=== PATIENT | female | born 1975 | race Caucasian/White ===

== ENCOUNTER 2016-11-02 05:46 | Observation (INO) | payer OTHER ==
--- NOTE | 2016-10-23 17:10 | GHP ---
[f rep st] PREOP HISTORY AND PHYSICAL DATE OF ADMISSION: 11/02/2016 ADMITTING DIAGNOSIS: Symptomatic uterine prolapse. HISTORY OF PRESENT ILLNESS: The patient is a 41-year-old, 2, para 2-0-0 -2, with a last menstrual period 09/18/2016 who presents for annual exam on October 14 with complaints of prolapse of her uterus for 3 weeks duration. She noticed after skiing, she had discomfort as well as pelvic pressure and pain , especially at the end of the day and after being on her feet all day. Normal urinary and bowel function. Occasional urgency, but does not have any leaking. The patient does have a personal history of breast cancer. It is HER-2 positive and BRCA 1,2 negative. She does desire to keep her ovaries at this time, but is interested in having a hysterectomy with removal of uterus to treat her symptomatic prolapse. PAST OB HISTORY: In 2004, she had a vaginal delivery. In 2006, had another vaginal delivery. 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 Cycles are usually monthly and she bleeds for 3 days. Flow is light. Patient denies any exposure to sexually transmitted diseases and she denies ever having an abnormal Pap smear. Most recent Pap smear up to date is normal and that was done October 19, 2016. PAST MEDICAL HISTORY: Breast cancer. PAST SURGICAL HISTORY: Bilateral mastectomy in 2010. FAMILY HISTORY: On father's side, a great-great grandmother with ovarian cancer , diagnosed at age 70. A maternal grandfather with pancreatic cancer. A maternal aunt with throat cancer. MEDICATIONS: Tamoxifen 20 mg a day x 5 years now, she plans to continue for 10 years. Vitamin D. ALLERGIES: No known drug allergies. SOCIAL HISTORY: The patient is , for 15 years. 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 Denies any alcohol or illicit drug use. She has alcohol 2 or 3 times each month and drinks a cup of caffeine daily. She lives with her and 2 children, 9 and 11-year-old boys. LABORATORY DATA: H and H is pending. STUDIES: A pelvic ultrasound was done and revealed a uterus that is retroverted , measuring 8 x 3 x 6 cm with two fibroids. One intramural and the other appears to be pedunculated, measuring about 3 x 3 cm. The lining looked normal. Bilateral ovaries normal. Small amount of free fluid. PHYSICAL EXAMINATION: VITAL SIGNS: On admission, vital signs are stable. The patient is afebrile. GENERAL APPEARANCE: Well-nourished, well-developed 41- year-old female, alert oriented x3. No apparent distress. HEART: Regular rate and rhythm. LUNGS: Clear to auscultation. ABDOMEN: Soft, nontender, nondistended. Active bowel sounds. PELVIC/BIMANUAL: She has a retroverted uterus, normal size. With Valsalva, the uterus does prolapse down to the introitus, Grade 2-3 prolapse. She does have good bladder and rectal support on exam. EXTREMITIES: Normal to inspection without tenderness or swelling. ASSESSMENT AND PLAN: This patient is a 41-year-old, 2, para 2-0-0-2 who presents with symptomatic uterine prolapse. PLAN: 1. Patient does desire definitive treatment at this time and desires to keep her ovaries. Discussed proceeding with a laparoscopic hysterectomy with removal of both tubes. 2. Surgical consents were obtained. Risks, benefits, alternatives were reviewed with the patient including but not limited to, bleeding, infection, damage to surrounding organs. The patient is aware of risks, wants to proceed with surgery. 3. Also discussed the procedure, length of operation, limitations, n.p.o. status. 4. Will order Ancef for antibiotics battery container finishing hand to OR. 5. SCDs for DVT prophylaxis. /[id number]/MODL MTDD
[2016-11-02] MEDS ORDERED: ceFAZolin 2 GM/DEXTROSE 100 ML IV ONE (06:00)
[2016-11-02] MEDS ORDERED: LR 1,000 ML IV ONE (06:13)
[2016-11-02] MEDS ORDERED: LIDOCAINE 1% 5 ML SDV ID PRN (06:13)
[2016-11-02] MEDS ORDERED: LIDOCAINE 1% 5 ML SDV ONE (06:14)
[2016-11-02] MEDS ORDERED: HYDROmorphONE/DILAUDID 2 MG/ML SYR ONE (07:03)
[2016-11-02] MEDS ORDERED: PROPOFOL 200 MG/20 ML VIAL ONE (07:03)
[2016-11-02] MEDS ORDERED: SCOPOLAMINE HYDROBROMIDE 1.5 MG PATCH TD ONE (07:10)
[2016-11-02] MEDS ORDERED: MIDAZOLAM 2 MG/2 ML VIAL ONE (07:10)
[2016-11-02] MEDS ORDERED: BUPIVACAINE 0.5% 30 ML SDV ONE (07:48)
[2016-11-02] MEDS ORDERED: DEXAMETHASONE 4 MG/ML VIAL ONE ×2 (08:19)
[2016-11-02] MEDS ORDERED: SILVER NITRATE APPLICATOR 1 APPL TP ONE (09:07)
[2016-11-02] MEDS ORDERED: SKIN ADHESIVE (DERMABOND) 1 EACH TP ONE (09:08)
[2016-11-02] MEDS ORDERED: ONDANSETRON 4 MG/2 ML VIAL ONE (09:10)
[2016-11-02] MEDS ORDERED: KETOROLAC 30 MG/1 ML SDV ONE (09:11)
[2016-11-02] MEDS ORDERED: PHENYLEPHRINE HCL 100 MCG/ML SYR ONE (09:11)
[2016-11-02] MEDS ORDERED: ROCURONIUM 50 MG/5 ML VIAL ONE (09:11)
[2016-11-02] MEDS ORDERED: LACTULOSE 20 GM/30 ML UDCUP PO PRN (09:33)
[2016-11-02] MEDS ORDERED: BISACODYL 10 MG SUPP PR PRN (09:33)
[2016-11-02] MEDS ORDERED: POLYETHYLENE GLYCOL 3350 17 GM PKT PO PRN (09:33)
[2016-11-02] MEDS ORDERED: KETOROLAC 30 MG/1 ML SDV IVP ONE (09:33)
[2016-11-02] MEDS ORDERED: ONDANSETRON 4 MG/2 ML VIAL IVP PRN (09:33)
[2016-11-02] MEDS ORDERED: MAGNESIUM HYDROXIDE 30 ML UDCUP PO PRN (09:33)
--- NOTE | 2016-11-02 09:33 | POSTOPPROG ---
Post Op Note Date of Operation: 11/02/16 Surgeon: Sade Shen Ice Cream Vendor: Rosalie Bedolla Anesthesiologist: Keshawn Sands Anesthesia: GET(General Endotracheal) Pre-op Diagnosis: Symptomatic uterine prolapse Post-op Diagnosis: Symptomatic uterine prolapse Indication: 41 y/o with symptomatic uterine prolapse Procedure: TLH, BS Findings: Grossly normal appearing uterus, tubes and ovaries Inf/Abcess present in the surg proc area at time of surgery?: No EBL: 50-100 (IVFs: 1200 cc LR UO: 50 cc clear urine at end of procedure) Complications: None Drains: Other (None) Specimen(s): Uterus, bilateral tubes
[2016-11-02] MEDS ORDERED: LR 1,000 ML IV SCH (10:00)
[2016-11-02] MEDS ORDERED: fentaNYL 100 MCG/2 ML INJ ONE (10:05)
--- NOTE | 2016-11-02 10:45 | GOP ---
[f rep st] OPERATIVE REPORT DATE OF OPERATION: 11/02/2016 SURGEON: Sade Shen DO CONTROL SYSTEMS ENGINEER: Rosalie Bedolla DO. ANESTHESIA: General endotracheal. ANESTHESIOLOGIST: Yassine Sands MD PREOPERATIVE DIAGNOSIS: Symptomatic uterine prolapse. POSTOPERATIVE DIAGNOSIS: Symptomatic uterine prolapse. PROCEDURE PERFORMED: Total laparoscopic hysterectomy, bilateral salpingectomy. FINDINGS: Grade 2-3 uterine prolapse noted. Grossly normal-appearing uterus that sounded to 10 cm. Grossly normal-appearing bilateral tubes and ovaries. Upper abdomen grossly normal appearing. All specimens sent to Pathology. SPECIMENS: Uterus, bilateral tubes. ESTIMATED BLOOD LOSS: 50 cc. IV FLUIDS: 1200 cc LR. URINE OUTPUT: 50 cc of clear urine at the end the procedure. INDICATIONS: The patient is a 41-year-old with symptomatic uterine prolapse who desires definitive treatment at this time. DESCRIPTION OF PROCEDURE: The patient was taken to the operating room, where general anesthesia was obtained without difficulty. Patient was placed in dorsal lithotomy position, prepped and draped in the usual sterile manner. A Lauren catheter was placed in her bladder. An open-sided speculum was placed in the vagina, and a single-tooth tenaculum was used to grasp the anterior lip of the cervix. The uterus was then gently sounded to 10 cm and dilated with Louie dilators up to a #7.5. At this time, a DAYANA uterine manipulator was then inserted over the cervix, and balloon inflated. This was to act as a means to manipulate the uterus. All instruments were then removed from the vagina. We turned our attention to the patient's abdomen. At this time, the infraumbilical area was injected with 0.5% plain Marcaine. A 5 mm infraumbilical skin incision was then made with a knife. The Veress needle was then inserted into the incision very carefully while tenting the abdominal wall. Aspiration was negative. The abdomen was then insufflated with carbon dioxide. Pneumoperitoneum was obtained. After adequate insufflation, the Veress needle was removed, and a 5 mm trocar was introduced through the infraumbilical incision into the abdominal cavity directly with the laparoscopic. Patient was placed in Trendelenburg position. There was adequate visualization of the pelvic structures. After injection of more local, another 5 mm skin incision was made in the left lower quadrant and 10 mm skin incision was made in the right lower quadrant. Atraumatic trocars were then placed. Evaluation of the pelvis revealed the findings noted above. The right fimbria was then grasped with an atraumatic grasper, and the LigaSure was used to dissect along the mesosalpinx. The fallopian tube was then removed on this side. Hemostasis was noted. The same procedure was done on the other side, and the left tube was removed. Again, hemostasis was noted. The round ligaments were then grasped, coagulated with the LigaSure multiple times, and transected without difficulty. Hemostasis noted. The dissection was carried down to the anterior and posterior leaves of the broad ligament and to the bladder flap anteriorly, which was created both sharply and bluntly. Uterine vessels were then cauterized multiple times, and transected with LigaSure until hemostasis was assured. We also incorporated the cardinal ligaments, which were cauterized and transected with the LigaSure. At this time, the entire colpotomy ring was identified and developed. Attention was then turned to the colpotomy. This was done using the Harmonic scalpel, anterior to posterior, and circumferentially. Hemostasis of the vaginal cuff was noted. The uterus was then removed through the vagina without difficulty. A sponge glove was then placed in the vagina in order to maintain pneumoperitoneum. We visualized the vaginal cuff. It did appear hemostatic at this time. Using a running 0 Vicryl V-Loc suture, the vagina was closed left to right and hemostasis was assured. The pelvis was then irrigated with copious amounts of normal saline. There was no bleeding noted from any of the pedicles or the vaginal cuff. Both the left and right ureters were visualized. Peristalsis were confirmed. Laparoscope was then removed, and all gas was allowed to escape from the abdomen. Trocar sleeves were then removed as well. Two 5 mm skin incision were closed with 3-0 Vicryl, and the fascia of the 10 mm incision was closed with 0 Vicryl, and the skin was then closed with 3-0 Vicryl. Each incision was covered with a Band-Aid. No complications. Patient tolerated the procedure well. All instruments, sponge, and needle counts correct x2.. The patient was then taken out of dorsal lithotomy position, awakened, and taken to the recovery room in stable condition. COMPLICATIONS: None. /[id number]/MODL MTDD
[2016-11-02] MEDS: OXYCODONE/APAP 5/325 TAB PO PRN ×2 (11:06→11:55)
[2016-11-02] MEDS ORDERED: HYDROCODONE/APAP 5/325 TAB PO PRN (14:26)
[2016-11-02] MEDS: HYDROCODONE/APAP 5/325 TAB PO PRN ×2 (15:28→19:47)
[2016-11-02] MEDS: KETOROLAC 30 MG/1 ML SDV IVP SCH ×2 (15:28→21:33)
[2016-11-02 18:38] VITALS: RESP 16
[2016-11-02] MEDS: SENNOSIDES/DOCUSATE SODIUM TAB PO SCH (21:33)
[2016-11-03] MEDS: HYDROCODONE/APAP 5/325 TAB PO PRN (00:04)
[2016-11-03] MEDS: KETOROLAC 30 MG/1 ML SDV IVP SCH ×2 (00:32→04:07)
[2016-11-03 06:11] LABS: HEMATOCRIT 31.5 % (38.0-47.0); HEMOGLOBIN 10.7 g/dL (12.6-16.3)
--- NOTE | 2016-11-03 07:48 | SOAPPROG ---
SOAP Progress Note Assessment/Plan: Assessment: 1) s/p TLH, BS secondary to uterine prolapse POD # 1 - pt is stable 2) Anemia - pt is asymptomatic Plan: Continue routine post-op orders Plan for d/c after pt voids this am Instructions reviewed Rx given for Percocet, Motrin Recommend iron and colace Pelvic rest RTC in 2 weeks for incision check 11/03/16 07:44 Subjective: Pt seen and examined. Doing well, no complaints. Pain is well controlled with [place]. Pt is OOB, estrellita regular diet, velasco just removed-has not yet voided, passing flatus. No BM. Denies any f/c/n/v/CP or SOB. Minimal spotting noted. No calf tenderness noted. Objective: Vital Signs Temp Pulse Resp BP Pulse Ox 36.8 C 50 L 16 82/46 L 95 11/03/16 04:33 11/03/16 04:33 11/03/16 04:33 11/03/16 04:33 11/03/16 04:33 Laboratory Results 11/03/16 05:40 11/02/16 11/03/16 11/04/16 05:59 05:59 05:59 Intake Total 3940 Output Total 3450 Balance 490 Physical Exam - Physical Exam General Appearance: WD/WN, alert, no apparent distress Respiratory: lungs clear, normal breath sounds Cardiac/Chest: regular rate, rhythm Abdomen: normal bowel sounds, soft, other (Nondistended, appropriate tenderness ; Incisions x 3 - C/D/I, bandaids in place) Pelvic Exam: deferred Extremities: non-tender, normal inspection Neuro/Psych: alert, normal mood/affect, oriented x 3 ICD10 Worksheet Patient Problems: Problems Problem Status Onset Uterine prolapse Acute - ICD10 Problem Qualifiers (1) Uterine prolapse
[2016-11-03 07:57] VITALS: BP 87/37; PULSE 60; TEMP 99; O2SAT 94
[2016-11-03] MEDS ORDERED: HYDROCODONE/APAP 5/325 TAB PO PRN (08:35)
[2016-11-03] MEDS: SENNOSIDES/DOCUSATE SODIUM TAB PO SCH (10:10)
[2016-11-03] MEDS ORDERED: IBUPROFEN 600 MG TAB PO SCH (12:00)
== END 2016-11-03 11:15 | disposition home or self-care (01) ==
LOC: FSGY 05:46 → F3E 09:33 → FOB 10:41
PROVIDERS: ADMIT Obstetrics & Gynecology; ATTEND Obstetrics & Gynecology
PROC: 0UT74ZZ Resection of Bilateral Fallopian Tubes, Percutaneous Endoscopic Approach (ICD-10-PCS; principal; 2016-11-02 07:15)
PROC: 0UTC7ZZ Resection of Cervix, Via Natural or Artificial Opening (ICD-10-PCS; principal; 2016-11-02 07:15)
PROC: 0UT9FZZ Resection of Uterus, Via Natural or Artificial Opening With Percutaneous Endoscopic Assistance (ICD-10-PCS; principal; 2016-11-02 07:15)
DX: N81.3 Complete uterovaginal prolapse (principal); D25.9 Leiomyoma of uterus, unspecified
CPT/HCPCS: 58571; G0378; J0690; J1100; J1170; J1885; J2250; J2370; J2405; J2704; J3010

== ENCOUNTER 2017-05-21 18:52 | Inpatient (IN) | payer OTHER ==
[2017-05-21] MEDS ORDERED: DEXAMETHASONE 4 MG/ML VIAL IVP ONE (19:02)
[2017-05-21] MEDS ORDERED: DIAZEPAM 10 MG/2 ML SYR IVP ONE (19:02)
--- NOTE | 2017-05-21 19:09 | EDPHY ---
H & P Time Seen by Provider: 05/21/17 19:06 HPI/ROS: HPI: This is a 41-year-old female who presents with Chief Complaint: Lower back pain Location: Bilateral lower back Quality: Sharp pain Duration: 1-3 days Signs and Symptoms: No bleeding, + radiation down right leg, no numbness, no weakness, no tingling, no incontinence, no decreased range of motion, no dysuria , no fevers Timing: Worsening Severity: 06/22 Context: Patient reports that she had a hysterectomy in October of this year. Since then she has been having lower back pain. Had an x-ray of her lumbar spine last week and diagnosed with herniated discs. Started prednisone yesterday and Flexeril today with no relief. Has been in the recliner the last 24 hours. Patient tried to get out of the recliner and had difficulty, admits to having a panic attack and then called EMS for help. 2010 adenocarcinoma breast bilateral. Modifying Factors: 100 mg IV fentanyl given on route with moderate relief. Comment: ROS: Constitutional: No fever, no chills, no weight loss Eyes: No blurred vision Respiratory: No shortness of breath, no cough Cardiovascular: No chest pain Gastrointestinal: No nausea, no vomiting no diarrhea Genitourinary: No dysuria Extremities: No myalgias Neurologic: No weakness, no numbness Skin: No rashes Hematologic: No bruising, no bleeding MEDICAL/SURGICAL/SOCIAL HISTORY: Hysterectomy, breast cancer right. Source: Patient Exam Limitations: No limitations - Personal History Tetanus Vaccine Date: SEP 2010 - Medical/Surgical History Hx Diabetes: No - Social History Smoking Status: Never smoked - Physical Exam Exam: CONSTITUTIONAL: Adult white female, pleasant cooperative, awake and alert, no obvious distress HEENT: Atraumatic and normocephalic, PERRL, EOMI. Tympanic membranes clear. . Oropharynx clear, no exudate and moist pink mucosa. Airway patent. No lymphadenopathy. No meningismus. Cardiovascular: Normal S1/S2, regular rate, regular rhythm, without murmur rub or gallop. PULMONARY/CHEST: Symmetrical and nontender. Clear to auscultation bilaterally Good air movement. No accessory muscle usage. ABDOMEN: Soft, nondistended, nontender, no rebound, no guarding, no peritoneal signs, no masses or organomegaly. No CVAT. EXTREMITIES: 2/2 pulses, no deformities, no clubbing, no cyanosis or edema. BACK: Bilateral reproducible lumbar paraspinous muscle tenderness, no paraspinous spasm, deep tendon reflexes including patellar reflexes 2/2, moderate pain with right and left straight leg raise, flexion 10, no extension , left and right lateral rotation 5 limited secondary to pain. NEUROLOGICAL: no focal neuro deficits. GCS 15. SKIN: Warm and dry, no erythema. no rash. Good capillary refill. Constitutional: Initial Vital Signs Temperature (C) 36.7 C 05/21/17 19:04 Heart Rate 73 05/21/17 19:04 Respiratory Rate 18 05/21/17 19:04 Blood Pressure 105/65 05/21/17 19:04 O2 Sat (%) 96 05/21/17 19:04 O2 Delivery Mode Room Air Allergies/Adverse Reactions: No Known Allergies Allergy (Unverified 06/01/11 11:06) Home Medications: Medication Instructions Recorded Herbals/Supplements -Info Only 10/26/16 Tamoxifen Citrate 10/26/16 Tylenol 10/26/16 Ibuprofen [Motrin (*)] 600 mg PO Q6 #30 tab 11/03/16 Flexeril 05/21/17 Prednisone 05/21/17 traMADol 05/21/17 Medical Decision Making ED Course/Re-evaluation: IV medications an MRI lumbar spine ordered 1909: Given IV Decadron and IV Valium No signs of neurovascular compromise/cauda equina syndrome/saddle anesthesia 2109: Called by radiologist. MR shows extensive metastases from sacrum up to L1 ED decision to consult for admission, spoke with hospitalist, Dr. Owens, and neurosurgery, Dr. Fabio Salazar, who kindly agreed to admit and provide further care Differential Diagnosis: Back pain including but not limited to muscular pain, herniated disc, spine fracture, intra-abdominal causes and urinary tract infection. Critical Care Time: I spent a total of 36 minutes of critical care time in obtaining history, performing a physical exam, bedside monitoring of interventions, collecting and interpreting tests and discussion with consultants but not including time spent performing procedures. 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
[2017-05-21] MEDS ORDERED: GADOBUTROL 10 ML VIAL IVP ONE (20:08)
[2017-05-21] MEDS ORDERED: HYDROmorphONE/DILAUDID 1 MG/ML INJ ONE (21:12)
[2017-05-21] MEDS ORDERED: HYDROmorphONE/DILAUDID 1 MG/ML INJ IVP ONE (21:25)
[2017-05-21] MEDS ORDERED: traMADol 50 MG TAB PO PRN (23:48)
[2017-05-21] MEDS ORDERED: oxyCODONE IR 5 MG TAB PO PRN (23:51)
[2017-05-21] MEDS ORDERED: ONDANSETRON 4 MG/2 ML VIAL IVP PRN (23:51)
[2017-05-21] MEDS ORDERED: ACETAMINOPHEN 325 MG TAB PO PRN (23:51)
[2017-05-21] MEDS ORDERED: HYDROmorphONE/DILAUDID 1 MG/ML INJ IVP PRN (23:51)
[2017-05-22] MEDS: DEXAMETHASONE 4 MG TAB PO SCH ×6 (00:32→23:45)
--- NOTE | 2017-05-22 00:44 | GCON ---
[f rep st] CONSULTATION NEUROSURGERY CONSULTATION NOTE DATE OF CONSULTATION: 05/21/2017 Patient was seen at approximately 11:30 p.m. on the general care floor at [facility]. HISTORY OF PRESENT ILLNESS: The patient is a 41-year-old woman with an unfortunate history of adenoc arcinoma of the breast in 2010 which was treated with mastectomy and chemotherapy. She has apparentl y done well since that time with no residual cancer but has been having some low back pain since november of this year. That back pain has increased greatly over the past week, and she has some radi ation into the legs. She says that it radiates down the back of both legs to around the ankle, and p rior to today, the right side had been worse but now it is mostly in the left leg. She denies any manuel wel or bladder incontinence or any weakness but is having difficulty walking due to extreme pain. Mario arce presented to the emergency department where MRI of the cervical, thoracic, and lumbar spine was obt ained. This revealed multiple metastases throughout multiple spinal levels. She has a large tumor i n the sacrum which involves the vast majority of the body of the sacrum. She also has large involvem ent of the posterior elements of L3. She has metastases in T11 and T12 and has a very small patholog ic compression fracture of T12. The MRI of the thoracic spine was slightly difficult to interpret as the contrast bolus had largely worn off, but she appears to have some tumor in the vertebral bodies of T8, T11, and T12. In the cervical spine, she has some enhancement in the vertebral body of C5 and T4. None of these levels are causing significant canal compromise other than the larger tumor in th e sacrum, which does likely cause some compromise of the lower sacral nerve roots, but it is somewhat difficult to tell on the imaging. REVIEW OF SYSTEMS: A 10-point review of systems is negative other than that described above in the H PI. PAST MEDICAL HISTORY: 1. Adenocarcinoma of the breast in 2010. 2. Hysterectomy. ALLERGIES: No known drug allergies. MEDICATIONS: 1. Herbal supplements. 2. Tamoxifen. 3. Tylenol. 4. Ibuprofen. 5. Flexeril. 6. Prednisone. 7. Tramadol. SOCIAL HISTORY: The patient is accompanied by her family. She is generally quite active doing outdo or activities. She is a lifelong nonsmoker and denies any alcohol or other drug use. FAMILY HISTORY: The family history was reviewed and is noncontributory. Specifically, there is no f amily history of spinal disease. PHYSICAL EXAMINATION: VITAL SIGNS: Currently, she is afebrile with a temperature of 36.7, heart rat e is 73, respiratory rate 18, blood pressure is 105/65, sats are 96% on room air. NEUROLOGIC: She i s awake, alert, and oriented x3. Cranial nerves 2-12 are grossly normal. She has full 5/5 strength at the deltoids, biceps, triceps, wrist flexion and extension and med specialist on both sides. In the lower e xtremities, she has 5/5 strength in the hip flexors and extensors, knee flexors and extensors, and pl elaine and dorsiflexion bilaterally. Her sensation to light touch and pain seems to be intact. Deep tendon reflexes are normal. IMAGING DATA: See HPI. LABORATORY DATA: She does not have any current new labs for review today. ASSESSMENT AND PLAN: The patient is a 41-year-old woman, who has a history of breast cancer in 2010. She was apparently in remission until now where she presents with back pain and has been found to h ave numerous spinal metastases. The worst of this is in the body of the sacrum where it appears as t kalen she may have some encroachment on the lower sacral nerves. I have no doubt that in totality th mandie tumors add up to result in a lot of back pain. Unfortunately, I do not think that there will be a good viable surgical solution for any of these. I explained to her and her family that the indicat ions for surgery would be instability or intractable pain despite medical measures. I expect that th e next step for her will be oncology consultation with restaging of her cancer. I think she probably will benefit most from spinal radiation and possibly more chemotherapy if they feel like this is laina sonable. We will follow along while she is in the hospital, although it is unlikely that surgical in tervention will be necessary. Please do not hesitate to contact us with any questions or concerns or changes in her neurologic exam. Thanks for the kind consultation. /[id number]/MODL
--- NOTE | 2017-05-22 01:34 | GHP ---
[f rep st] HISTORY AND PHYSICAL DATE OF ADMISSION: 05/21/2017 CHIEF COMPLAINT: Back pain. HISTORY OF PRESENT ILLNESS: The patient is a 41-year-old female, who had breast cancer in 2010, whezekiel h was treated with chemotherapy, radiation and Herceptin. She has been cancer free since that time. She had a bilateral mastectomy. She follows with Dr. Dhaliwal. She has been having increasing low back pain since November but it did come and go until this last week, it became excruciating and severe. She describes a sharp pain mostly in her low back, radiating corinna n the back of her legs, switching between the right and the left leg, [id number] alternating. In t he last week, she has developed severe spasms in the legs. The pain is better when she lies down. S he is having a hard time walking due to such bad pain. She denies any problems urinating. Her only problem with urinating is that walking hurts too much, so she does not go to the bathroom and holds i t. She denies any weight loss. PAST MEDICAL HISTORY: Breast cancer, status post bilateral mastectomy, followed by chemotherapy and radiation. She is still on tamoxifen. PAST SURGICAL HISTORY: A uterine prolapse, status post hysterectomy. MEDICATIONS: Please see computer record for full detailed list. ALLERGIES: No known drug allergies. SOCIAL HISTORY: No smoking. Occasional alcohol. She is and has 2 kids. REVIEW OF SYSTEMS: Complete review of systems obtained. Review of systems are negative on constitut ional, HEENT, GI, pulmonary, vascular, , hematology, skin, musculoskeletal, endocrine, psych except for positives as noted in HPI. FAMILY HISTORY: Negative for breast cancer in a first-degree relative. Her grandmother had ovarian cancer. She had a great aunt with breast cancer. Notably, her cancer was BRCA negative. PHYSICAL EXAMINATION: GENERAL: Well-developed, well-nourished female, in no acute distress. VITAL SIGNS: Temperature is 36.8, pulse 80, blood pressure 117/66, saturating 94% on room air. EYES: Nor mal conjunctivae. Pupils react to light. ENT: Normal ears, nose. Hearing intact. Normal lips and teeth. Oropharynx moist. NECK: Trachea midline. No thyromegaly. CHEST: Normal respiratory effo rt. LUNGS: sounds bilaterally. CARDIOVASCULAR: Regular rate and rhythm. No murmur. N o lower extremity edema. ABDOMEN: Soft, nontender. No hepatosplenomegaly. SKIN: Warm, dry, intac t. No rash. MUSCULOSKELETAL: No cyanosis or clubbing. Strength 5/5 upper and lower extremities. NEUROLOGIC: Cranial nerves intact. Normal sensation to light touch. PSYCH: Alert and oriented x3. Normal affect. Normal judgment. Normal memory. DATA: Lumbar spine MRI shows widespread metastases with mild compression fracture at T12. Her bladd er is distended. Cervical and T-spine also showed small metastases. Also, we see metastases to live r and lungs. This case was discussed with Dr. Salazar of Neurosurgery. Her spine appears stable. There is no cord compression at this time. He does not anticipate any surgical treatment to be needed. He agrees wit h Decadron. ASSESSMENT AND PLAN: 1. Extensive spinal metastases. Suspect recurrence of breast cancer. It is unclear if Oncology we will want to re-biopsy to confirm. At this point, there is no cord compression but oral Decadron savanah l help symptomatically. She has lung and liver metastases seen on her MRI which needs further stagin g with a CT scan of the chest, abdomen and pelvis. Pain control will be with continued IV Dilaudid. We will check labs in the morning including CBC, chem 7, liver function tests. Oncology can be cons ulted in the morning to discuss further management. 2. Urinary retention. The patient denies any urinary retention. States during her first MRI, she j ust had not urinated due to severe pain with walking to the bathroom. She does not have any evidence of cord compression. I do not suspect that she has true urinary retention. She now has a Lauren cat heter. I suspect the Lauren catheter can be discontinued in the morning with voiding trials. CODE STATUS: Full. ADMISSION STATUS: 1. We will admit to inpatient as she is medically complex. 2. Anticipate greater than 2 midnights. 3. Deep vein thrombosis prophylaxis. This can be initiated once biopsy needed to ruled out. /[id number]/MODL
[2017-05-22 04:55] LABS: % IMMATURE GRANULYOCYTES 0.4 % (0.0-1.1); ABSOLUTE IMMATURE GRANULOCYTES 0.05 10^3/uL (0.00-0.10); ADD DIFF? NO; ADD MORPH? NO; ADD SCAN? NO; ATYPICAL LYMPHOCYTE FLAG 0 (0-99); FRAGMENT RBC FLAG 0 (0-99); HEMATOCRIT 39.4 % (38.0-47.0); HEMOGLOBIN 13.4 g/dL (12.6-16.3); LEFT SHIFT FLG 0 (0-99); LIPEMIA HEMOLYSIS FLAG 90 (0-99); MEAN CELL HEMOGLOBIN 31.7 pg (27.9-34.1); MEAN CELL VOLUME 93.1 fL (81.5-99.8); MEAN PLATELET VOLUME 9.6 fL (8.7-11.7); PLATELET CLUMPS FLAG 0 (0-99); PLATELET COUNT 321 10^3/uL (150-400); RED BLOOD CELL COUNT 4.23 10^6/uL (4.18-5.33); RED CELL DISTRIBUTION WIDTH 11.9 % (11.5-15.2)
[2017-05-22 05:04] LABS: ALANINE AMINOTRANSFERASE 22 IU/L (9-52); ALKALINE PHOSPHATASE 105 IU/L (38-126); ANION GAP 12 mEq/L (8-16); ASPARTATE AMINOTRANSFERASE 23 IU/L (14-46); BILIRUBIN,TOTAL 0.5 mg/dL (0.1-1.4); BILIRUBIN-CONJUGATED 0.1 mg/dL (0.0-0.5); BILIRUBIN-UNCONJUGATED 0.4 mg/dL (0.0-1.1); CALCIUM 10.4 mg/dL (8.5-10.4); CARBON DIOXIDE 22 mEq/l (22-31); CHLORIDE 102 mEq/L (97-110); CREATININE 0.8 mg/dL (0.6-1.0); GLOMERULAR FILTRATION RATE > 60; GLUCOSE 144 mg/dL (70-100); POTASSIUM 4.6 mEq/L (3.5-5.2); SODIUM 136 mEq/L (134-144); TOTAL PROTEIN 7.3 g/dL (6.3-8.2)
--- NOTE | 2017-05-22 06:20 | SOAPPROG ---
SOAP Progress Note Assessment/Plan: Assessment: 41F with likely metastatic breast cancer with numerous spinal mets Plan: -see consult note from late last night -oncology for staging and likely spinal radiation -probably no indication for surgery unless signs of spinal instability or intractable pain despite radiation -surgery would delay chemo/radiation by a few weeks -will follow along, please call with any questions or concerns 05/22/17 06:18 Subjective: patient sleeping Objective: Vital Signs Temp Pulse Resp BP Pulse Ox 36.5 C 76 18 117/59 L 95 05/22/17 04:03 05/22/17 04:03 05/22/17 04:03 05/22/17 04:03 05/22/17 04:03 Laboratory Results 05/22/17 04:15 05/22/17 04:15 05/21/17 05/22/17 05/23/17 05:59 05:59 05:59 Intake Total 440 Output Total 200 Balance 240 exam deferred, patient sleeping, seen when awake 5 hours ago (see full consult note) ICD10 Worksheet Patient Problems: Problems Problem Status Onset Adenocarcinoma of breast Acute Intractable back pain Acute 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
[2017-05-22] MEDS ORDERED: POLYETHYLENE GLYCOL 3350 17 GM PKT PO PRN (08:38)
[2017-05-22] MEDS ORDERED: LACTULOSE 20 GM/30 ML UDCUP PO PRN (08:38)
[2017-05-22] MEDS ORDERED: BISACODYL 10 MG SUPP PR PRN (08:38)
[2017-05-22] MEDS ORDERED: MAGNESIUM HYDROXIDE 30 ML UDCUP PO PRN (08:38)
[2017-05-22] MEDS ORDERED: HYDROmorphONE/DILAUDID 1 MG/ML INJ IVP PRN (08:38)
[2017-05-22] MEDS ORDERED: ENOXAPARIN 40 MG/0.4 ML SYR SC SCH (09:00)
[2017-05-22] MEDS: oxyCODONE IR 5 MG TAB PO PRN ×3 (09:39→21:14)
[2017-05-22] MEDS ORDERED: IOPAMIDOL (ISOVUE-300) 100 ML BTL ONE (10:21)
[2017-05-22] MEDS: DIAZEPAM 10 MG/2 ML SYR IVP PRN ×3 (10:37→21:11)
[2017-05-22] MEDS: CYCLOBENZAPRINE 10 MG TAB PO SCH ×3 (10:42→21:13)
--- NOTE | 2017-05-22 12:48 | HOSPPROG ---
Hospitalist Progress Note Assessment/Plan: 41 yo F with hx of breast cancer diagnosed in 2010 s/p bilateral mastectomy, xrt , chemo and herceptin pw radicular back pain found to have diffuse skeletal mets # widespread spinal mets: with large sacral tumor and diffuse mets noted on personal review of C,T, L spine MRI. NSG consulted and without e/o cord compromise no surgical intervention planned at this time. Oncology consulted, suspect patient will need radiation for palliation. Discussed with patient that given metastatic disease there is no possibility of cure through surgery. Lung and liver mets noted on spine imaging and ct c/a/p pending. Suspect this is recurrent breast cancer but may need repeat bx to r/o possibility of new primary. # hx of adenocarcinoma of the breast: as above # urinary retention: uncertain if true retention but pain is so severe she is really unable to ambulate and does not think she will be able to get to commode. Will leave velasco in place for now, when pain better controlled can dd # pain: severe due to extensive metastatic disease, continue dilaudid IV and oxy IR as needed today--depending on total daily requirement for narcotics can add long acting in am if needed, added valium for spasm type pain # IP # patient new to my care. Old records reviewed and summarized as above. Care plan reviewed with family present at bedside. Subjective: no significant overnight events, patient continues to have severe pain that is much much worse if she has to move at all, no nausea, no fever, no loss of feeling or weakness Objective: Vital Signs Temp Pulse Resp BP Pulse Ox 37.2 C 80 15 121/65 H 94 05/22/17 08:00 05/22/17 08:00 05/22/17 08:00 05/22/17 08:00 05/22/17 08:00 Laboratory Results 05/22/17 04:15 05/22/17 04:15 05/21/17 05/22/17 05/23/17 05:59 05:59 05:59 Intake Total 865 Output Total 400 Balance 465 awake alert nad mild distress anicteric op clear rrr no mrg cta b soft nt nd no cce warm dry well perfused oriented appropriate ICD10 Worksheet Patient Problems: Problems Problem Status Onset Uterine prolapse Acute Adenocarcinoma of breast Acute 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
[2017-05-22] MEDS: SENNOSIDES/DOCUSATE SODIUM TAB PO SCH ×2 (14:13→21:12)
--- NOTE | 2017-05-22 14:35 | GHP ---
[f rep st] HISTORY AND PHYSICAL DATE OF ADMISSION: 05/21/2017 HISTORY OF PRESENT ILLNESS: Margarita is a 41-year-old female who is followed by my partner, Dr. Cecilia Dhaliwal. Margarita was diagnosed with stage IIA HER-2/maddie positive, hormone receptor positive breast carcinoma in May of 2011. She was treated with bilateral mastectomy and adjuvant docetaxel, carboplatin, and trastuzumab therapy. She completed 1 year of adjuvant trastuzumab therapy in June of 2012. She did receive postmastectomy radiation which was completed in January of 2012. She is currently on tamoxifen. The patient reports several months of mild pelvic pain. She first noticed this in the late spring of this year. She remains quite active initially, running on a regular basis. She went on a canoe trip in the [facility] in March and noted she had to take several doses of ibuprofen daily due to low back and pelvic pain. She reports her symptoms became acutely worse over the past 3 weeks. She was seen by both a chiropractor and physical therapist. She felt that her symptoms improved somewhat with chiropractic manipulation. However, over the last 2-3 days she has had a fairly extensive pain with shooting pains going down the posterior left thigh. The pain became so severe that she sought attention in the emergency department. An MRI of the lumbar spine done yesterday evening revealed severe widespread osseous metastatic disease with a large expansile lobulated tumor eroding and a destroying the sacrum. The sacral spinal canal is obliterated. The patient has involvement of posterior elements of L3 with mild central spinal stenosis. Tumor is also present at T11 and T12. Subsequent MRI of the thoracic spine was a suboptimal study but does confirm involvement of T12-T11 and also demonstrates T8. Spinal canal is adequate on this study. A cervical MRI reveals metastatic involvement of C5 and T4 and no evidence of spinal cord involvement. A CT of the chest, abdomen, and pelvis done earlier today reveals multiple bilateral pulmonary nodules, the greatest approximately 2 cm in size, and low- volume metastatic disease to the liver. The patient's pain is under somewhat better control. She denies any extremity weakness or numbness. She has had difficulty walking, mainly due to severe sacral pain. She denies urinary retention or fecal incontinence. She does have a Lauren catheter in place, as it is quite painful for her to get up out of bed to go to the bathroom. When seen this afternoon, she is accompanied by her and [id number]. PAST MEDICAL HISTORY: Early stage breast carcinoma as outlined above. Otherwise unremarkable. PAST SURGICAL HISTORY: 1. Bilateral mastectomy. 2. History of lipoma removal, right lateral chest wall. FAMILY MEDICAL HISTORY: The patient reports a paternal grandmother had ovarian carcinoma in her 60s. A paternal grandfather's sister had breast cancer, age greater than 50. Maternal grandfather had pancreatic cancer in his 60s. A paternal great aunt had breast cancer in her 50s. A maternal aunt had head and neck carcinoma. SOCIAL HISTORY: The patient is . She lives locally. She has 2 children , ages 11 and 9. 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 REVIEW OF SYSTEMS: As above. Additionally, denies any recent weight loss or anorexia. Denies headache or visual change. Denies chest pain, cough, exertional dyspnea. Denies abdominal pain or bloating. Denies recent fevers or chills. PHYSICAL EXAMINATION: GENERAL: The patient's family members and nursing are present for entire exam. Patient is lying in bed. She is in no acute distress when seen. HEENT: Pupils are equal. Sclerae are nonicteric. There is no palpable submandibular, cervical, or supraclavicular adenopathy. HEART: Regular without murmur. LUNGS: Clear bilaterally. No wheeze. No rhonchi. No crackles. Patient does have one area of point tenderness in the lumbar spine approximately to the L3-L4 level. There is no point tenderness over the sacrum , thoracic, cervical spine. ABDOMEN: Soft, nontender, nondistended. No organomegaly or mass. No extremity swelling or edema. NEUROLOGICAL: The patient can move all 4 extremities against gravity without difficulty. Sensation is intact in all 4 extremities. She is alert oriented and appropriate with fluent speech. IMAGING RESULTS: As per HPI. LABORATORY DATA: CBC reveals a white count of 12,350, hemoglobin 13.4, hematocrit 39.4, platelet count is 321,000, sodium 136, potassium 4.6, chloride 102, bicarb 22, BUN 18, creatinine 0.8, calcium 10.4, liver function tests normal. IMPRESSION: 1. Recurrent metastatic breast carcinoma. 2. Sacral pain due to near-complete replacement of sacrum with bony metastatic disease. 3. Low-volume pulmonary and hepatic metastasis. The patient is a 41-year-old female with a history of early stage HER-2/maddie positive breast carcinoma who completed her initial treatment and adjuvant therapy approximately 5 years ago. Unfortunately, she now presents with severe sacral pain and evidence of widespread recurrence likely of her breast cancer. I have reviewed her films with Radiology. I discussed the concern for recurrent disease with the patient and her family today. I have recommended a CT-guided biopsy to confirm the diagnosis and also to confirm that her recurrence is also HER-2/maddie positive. This will be done by radiology on Wednesday and a CT-guided biopsy of 1 of her pelvic lesions has been ordered. The patient has been evaluated by Neurosurgery. She is neurologically intact. She has significant pain. Given that there is extensive destruction of the sacrum, no neurosurgical intervention is possible at the current time. I think the patient would benefit from palliative radiation therapy. I discussed her case with Dr. Mccloud who will see the patient over the weekend to discuss initiation of palliative radiation. I am hopeful this will result in fairly rapid improvement in her pain. Her pain is under good control currently with narcotic analgesia and steroids. We did briefly discuss the treatment of recurrent metastatic HER-2/maddie positive breast cancer. I would favor initial therapy with paclitaxel, trastuzumab, and pertuzumab once she has completed palliative radiation therapy. I will notify Dr. Dhaliwal of the patient's admission to the hospital. Our service will continue to follow her during her hospital stay. We will plan on outpatient followup with Dr. Dhaliwal once discharged. The patient and her had several questions about her diagnosis and prognosis, which were answered. The patient understands that recurrent metastatic breast cancer represents an incurable malignancy for which treatment would be palliative in intent. Her questions were answered today. The care plan was discussed with nursing. Total time for today's visit was approximately 75 minutes, reviewing of films with radiology and telephone discussion with Dr. Mccloud. /[id number]/MODL MTDD
[2017-05-22] MEDS: TAMOXIFEN CITRATE 10 MG TAB PO SCH (17:09)
[2017-05-23] MEDS: DEXAMETHASONE 4 MG TAB PO SCH ×3 (05:58→18:22)
[2017-05-23] MEDS: oxyCODONE IR 5 MG TAB PO PRN ×4 (05:58→20:01)
[2017-05-23] MEDS: ENOXAPARIN 40 MG/0.4 ML SYR SC SCH (09:25)
[2017-05-23] MEDS: SENNOSIDES/DOCUSATE SODIUM TAB PO SCH ×2 (09:27→20:01)
[2017-05-23] MEDS: TAMOXIFEN CITRATE 10 MG TAB PO SCH (09:31)
[2017-05-23] MEDS: CYCLOBENZAPRINE 10 MG TAB PO SCH ×3 (10:12→21:21)
[2017-05-23] MEDS: DIAZEPAM 10 MG/2 ML SYR IVP PRN ×2 (10:40→20:00)
--- NOTE | 2017-05-23 11:35 | HOSPPROG ---
Hospitalist Progress Note Assessment/Plan: 41 yo F with hx of breast cancer diagnosed in 2010 s/p bilateral mastectomy, xrt , chemo and herceptin pw radicular back pain found to have diffuse skeletal mets # widespread spinal mets: with large sacral tumor and diffuse mets noted on personal review of C,T, L spine MRI. NSG consulted and without e/o cord compromise no surgical intervention planned at this time. Personally reviewed abd/chest CT with diffuse pulmonary mets, at least 4 hepatic mets and further bony mets to B iliac, scapula and rib. Plan is for radiation to sacral mets today. # recurrent breast adenocarcinom: as above, presumed to be recurrence of Her-2/ maddie positive breast ca originally dx on 2010 at stage 2A. Will need to get repeat confirmatory biopsy which is planned by IR in am. Oncology involved and at this point recommending likely tx with paclitaxel, trastuzumab, pertuzumab. # urinary retention: uncertain if true retention but pain is so severe she is really unable to ambulate and does not think she will be able to get to commode. Will leave velasco in place for now, when pain better controlled can dc with voiding trials # pain: severe due to extensive metastatic disease, continue dilaudid IV and oxy IR as needed along with valium for muscle spasm and at this time pain is well controlled. Suspect radiation will relieve pain significantly and can determine after that if long acting narcotics should be added. # IP status given multiple active issues as above Subjective: no significant overnight events, pain is reasonably well controlled overnight, plan is for radiation this morning Objective: Vital Signs Temp Pulse Resp BP Pulse Ox 36.7 C 70 14 108/59 L 95 05/23/17 08:00 05/23/17 08:00 05/23/17 08:00 05/23/17 08:00 05/23/17 08:00 Laboratory Results 05/22/17 04:15 05/22/17 04:15 05/22/17 05/23/17 05/24/17 05:59 05:59 05:59 Intake Total 865 1200 Output Total 400 2450 Balance 465 -1250 awake alert nad mild distress anicteric op clear rrr no mrg cta b soft nt nd no cce warm dry well perfused oriented appropriate ICD10 Worksheet Patient Problems: Problems Problem Status Onset Adenocarcinoma of breast Acute Intractable back pain Acute 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
--- NOTE | 2017-05-23 12:13 | SOAPPROG ---
JADA Progress Note Assessment/Plan: Assessment: 1) Metastatic breast cancer 2) sacral pain from metastatic involvement from #1 3) Low volume pulmonary and hepatic metastatic disease Plan: Patient has been seen by Radiation Oncology. She received her first dose of palliative XRT to the sacrum yesterday, and will receive dose #1 today. I greatly appreciate Dr. Mccloud's assistance in her care. Continue current pain medications. She feels that her pain is adequately controlled for now. Dr. Dhaliwal informed of recent developments, and will see her once discharged. Plan Taxol/Herceptin/Perjeta to begin approximately 2 weeks after completion of XRT. She has been working to a limited degree with PT. She may require an eventual Ortho consult to evaluate for pelvic insufficiency given the degree of tumor destruction involving her sacrum. At this point there does not appear to be a surgical option. Patient's questions answered. Plan d/w nursing. Tissue biopsy (pelvis) planned for tomorrow. 05/23/17 12:06 05/23/17 12:07 05/23/17 12:13 Subjective: XRT began yesterday. Denies pain at rest. Objective: Vital Signs Temp Pulse Resp BP Pulse Ox 36.9 C 66 16 106/59 L 95 05/23/17 11:35 05/23/17 11:35 05/23/17 11:35 05/23/17 11:35 05/23/17 11:35 Laboratory Results 05/22/17 04:15 05/22/17 04:15 05/22/17 05/23/17 05/24/17 05:59 05:59 05:59 Intake Total 865 1200 Output Total 400 2450 Balance 465 -1160 - Time Spent With Patient Time Spent With Patient: 30 minutes Physical Exam - Physical Exam General Appearance: alert, no apparent distress EENT: PERRL/EOMI Neuro/Psych: no motor/sensory deficits, alert, normal mood/affect ICD10 Worksheet Patient Problems: Problems Problem Status Onset Adenocarcinoma of breast Acute Intractable back pain Acute 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
--- NOTE | 2017-05-23 17:08 | ASMTCMCOM ---
CM Note CM Note Notes: Met with pt this morning before she was going to CT scan. She was tearful and expressed shock about the news that she is stage IV with mets to spine etc. She was waiting to speak with the oncologist to see what treatments might be available to her. She expressed concerns about her two boys eleven and eight who are currently with grandparents. Pts mother is driving from [place], [place] today and her sister is arriving from [place]. Also spoke with Sister In Law, Maeve who is here to support pt. Pts Mario here to speak with Dr. Good of oncology. Will continue to follow. Date Signed: 05/22/2017 02:53 PM Electronically Signed By:Digna Mackenzie
[2017-05-24] MEDS: DEXAMETHASONE 4 MG TAB PO SCH ×5 (00:11→23:58)
[2017-05-24] MEDS: DIAZEPAM 10 MG/2 ML SYR IVP PRN ×2 (02:00→19:50)
[2017-05-24] MEDS: oxyCODONE IR 5 MG TAB PO PRN ×2 (05:47→19:50)
[2017-05-24 06:13] LABS: % IMMATURE GRANULYOCYTES 0.4 % (0.0-1.1); ABSOLUTE IMMATURE GRANULOCYTES 0.04 10^3/uL (0.00-0.10); ADD DIFF? NO; ADD MORPH? NO; ADD SCAN? NO; ATYPICAL LYMPHOCYTE FLAG 0 (0-99); FRAGMENT RBC FLAG 0 (0-99); HEMATOCRIT 37.8 % (38.0-47.0); HEMOGLOBIN 12.8 g/dL (12.6-16.3); LEFT SHIFT FLG 0 (0-99); LIPEMIA HEMOLYSIS FLAG 90 (0-99); MEAN CELL HEMOGLOBIN CONCENTR. 33.9 g/dL (32.4-36.7); MEAN CELL VOLUME 94.5 fL (81.5-99.8); MEAN PLATELET VOLUME 9.8 fL (8.7-11.7); PLATELET CLUMPS FLAG 0 (0-99); PLATELET COUNT 318 10^3/uL (150-400); RED CELL DISTRIBUTION WIDTH 11.9 % (11.5-15.2)
[2017-05-24 06:23] LABS: INR 1.21 (0.83-1.16); PROTIME(PATIENT) 15.3 SEC (12.0-15.0)
[2017-05-24 06:24] LABS: APTT 24.6 SEC (23.0-38.0)
[2017-05-24] MEDS: CYCLOBENZAPRINE 10 MG TAB PO SCH ×3 (09:53→21:59)
--- NOTE | 2017-05-24 10:28 | SOAPPROG ---
JADA Progress Note Assessment/Plan: E&M for breast cancer * Multiple skeletal and liver lesions: Concerning for metastatic breast cancer. She is to get biopsy of pelvic lesion today. This will help confirm suspicion and direct therapy. She is undergoing palliative xrt. Will give dose of Zometa today and I discussed potential risks and benefits. I will also get a baseline ECHO since she was previously Her2 positive. Because of her history and lack of symptoms, I also recommend getting a brain MRI to complete staging. Tentative plan Taxol/Herceptin/Perjeta to begin approximately 2 weeks after completion of XRT. * History of stage IIA breast cancer 2010, ER+, Her2 +: Underwent mastectomy, adjuvant TCH, adjuvant xrt, adjuvant tamoxifen. * Disposition: If able to get around and be independent, can go home with therapy. She is worried about the stairs in her home. Subjective: No pain with lying still but pelvic pain with standing. Able to get to commode yesterday. Denies weakness but feels "shaky" with standing. Objective: Vital Signs Temp Pulse Resp BP Pulse Ox 36.9 C 62 18 95/48 L 95 05/24/17 08:20 05/24/17 08:20 05/24/17 08:20 05/24/17 08:20 05/24/17 08:20 Laboratory Results 05/24/17 05:04 05/22/17 04:15 05/23/17 05/24/17 05/25/17 05:59 05:59 05:59 Intake Total 1200 2000 Output Total 2450 2500 Balance -1250 -500 PT 15.3 SEC (12.0-15.0) H 05/24/17 05:04 INR 1.21 (0.83-1.16) H 05/24/17 05:04 Physical Exam - Physical Exam General Appearance: no apparent distress Respiratory: normal breath sounds Cardiac/Chest: regular rate, rhythm Neuro/Psych: no motor/sensory deficits ICD10 Worksheet Patient Problems: Problems Problem Status Onset Adenocarcinoma of breast Acute Intractable back pain Acute 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
[2017-05-24] MEDS ORDERED: ZOLEDRONIC ACID 4 MG in D5W 100 ML IV ONE (10:31)
[2017-05-24] MEDS ORDERED: LIDOCAINE 1% 300 MG/30 ML SDV ONE (14:32)
[2017-05-24] MEDS ORDERED: FLUMAZENIL 0.5 MG/5 ML MDV IVP ONE (14:44)
[2017-05-24] MEDS ORDERED: NALOXONE HCL 0.4 MG/ML INJ ONE (14:45)
[2017-05-24] MEDS ORDERED: fentaNYL 100 MCG/2 ML INJ ONE (14:45)
[2017-05-24] MEDS ORDERED: MIDAZOLAM 2 MG/2 ML VIAL ONE (14:45)
--- NOTE | 2017-05-24 16:46 | HOSPPROG ---
Hospitalist Progress Note Assessment/Plan: I attempted to see the patient multiple times today, but she hasn't been available since she has been in procedure chart was reviewed and case discussed with Dr. Melendrez P/ Dc home once pain controlled and safe to DC from a functional stand point Objective: Vital Signs Temp Pulse Resp BP Pulse Ox 36.9 C 61 14 103/65 95 05/24/17 08:20 05/24/17 16:31 05/24/17 16:31 05/24/17 16:31 05/24/17 16:35 Laboratory Results 05/24/17 05:04 05/22/17 04:15 05/23/17 05/24/17 05/25/17 05:59 05:59 05:59 Intake Total 1200 2000 990 Output Total 2450 2500 350 Balance -1250 -500 640 PT 15.3 SEC (12.0-15.0) H 05/24/17 05:04 INR 1.21 (0.83-1.16) H 05/24/17 05:04 ICD10 Worksheet Patient Problems: Problems Problem Status Onset Uterine prolapse Acute Adenocarcinoma of breast Acute 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
[2017-05-24] MEDS ORDERED: GADOBUTROL 10 ML VIAL IVP ONE (17:47)
[2017-05-24] MEDS: SENNOSIDES/DOCUSATE SODIUM TAB PO SCH ×2 (19:13→19:51)
[2017-05-24] MEDS: ENOXAPARIN 40 MG/0.4 ML SYR SC SCH (19:13)
[2017-05-24] MEDS: TAMOXIFEN CITRATE 10 MG TAB PO SCH (19:14)
--- NOTE | 2017-05-24 20:47 | POSTOPPROG ---
Post Op Note Date of Operation: 05/24/17 Surgeon: Fabio Masterson Anesthesia: IV Sedation Pre-op Diagnosis: Metastatic breast ca Post-op Diagnosis: Same Indication: Lytic lesion Procedure: Biopsy of left iliac lytic lesion Findings: See report Inf/Abcess present in the surg proc area at time of surgery?: No EBL: Minimal Complications: No immediate
[2017-05-25] MEDS: DIAZEPAM 10 MG/2 ML SYR IVP PRN ×3 (05:48→21:21)
[2017-05-25] MEDS: oxyCODONE IR 5 MG TAB PO PRN ×4 (05:48→18:29)
[2017-05-25] MEDS: DEXAMETHASONE 4 MG TAB PO SCH ×3 (05:48→18:29)
--- NOTE | 2017-05-25 09:11 | SOAPPROG ---
SOAP Progress Note Assessment/Plan: E&M for breast cancer * Multiple skeletal and liver lesions: Concerning for metastatic breast cancer and biopsy pending, which will help confirm suspicion and direct therapy. She is undergoing palliative xrt. Trini give 05/24. I will also get a baseline ECHO since she was previously Her2 positive. Tentative plan Taxol/Herceptin/ Perjeta to begin approximately 2 weeks after completion of XRT. * History of stage IIA breast cancer 2010, ER+, Her2 +: Underwent mastectomy, adjuvant TCH, adjuvant xrt, adjuvant tamoxifen. * Disposition: If able to get around and be independent, can go home with therapy. She is worried about the stairs in her home. I will look into drugs to help alleviate some of the nerve pain. Subjective: Still a lot of pain with standing and trying to walk. Comfortable at rest. Biopsy went well. Pain is shooting down her legs. Objective: Vital Signs Temp Pulse Resp BP Pulse Ox 37.1 C 80 16 110/56 L 94 05/25/17 08:50 05/25/17 08:50 05/25/17 08:50 05/25/17 08:50 05/25/17 08:50 Laboratory Results 05/24/17 05:04 05/22/17 04:15 05/24/17 05/25/17 05/26/17 05:59 05:59 05:59 Intake Total 1999 1790 Output Total 2500 750 Balance -500 1040 PT 15.3 SEC (12.0-15.0) H 05/24/17 05:04 INR 1.21 (0.83-1.16) H 05/24/17 05:04 MRI of the Head (Before and Following Gadolinium) Impression: Normal MRI examination of the brain without and with contrast. No intracranial metastatic lesions identified... 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
[2017-05-25] MEDS: SENNOSIDES/DOCUSATE SODIUM TAB PO SCH ×2 (09:49→22:31)
[2017-05-25] MEDS: CYCLOBENZAPRINE 10 MG TAB PO SCH ×3 (09:53→21:22)
[2017-05-25] MEDS: ENOXAPARIN 40 MG/0.4 ML SYR SC SCH (09:58)
[2017-05-25] MEDS: GABAPENTIN 300 MG CAP PO SCH ×2 (10:10→21:21)
--- NOTE | 2017-05-25 13:57 | HOSPPROG ---
Hospitalist Progress Note Assessment/Plan: 41 yo F with hx of breast cancer diagnosed in 2010 s/p bilateral mastectomy, xrt , chemo and herceptin pw radicular back pain found to have diffuse skeletal mets # widespread spinal mets with large sacral tumor and diffuse mets noted on personal review of C,T, L spine MRI. -continue radiation -agree with starting neurontin -cont oxycodone for BT pain # recurrent breast adenocarcinom: as above, presumed to be recurrence of Her-2/ maddie positive breast ca originally dx on 2010 at stage 2A. Will need to get repeat confirmatory biopsy which is planned by IR in am. Oncology involved and at this point recommending likely tx with paclitaxel, trastuzumab, pertuzumab. # urinary retention: # pain secondary to metastatic disease -see plan as per above # IP status given multiple active issues as above Dispo: DC home once pain is controlled and she is able to function Subjective: continues to have severe pain with movement. was able to get out of bed with pt earlier today. no other acute complaints Objective: Vital Signs Temp Pulse Resp BP Pulse Ox 37.1 C 80 16 110/56 L 94 05/25/17 08:50 05/25/17 08:50 05/25/17 08:50 05/25/17 08:50 05/25/17 08:50 Laboratory Results 05/24/17 05:04 05/22/17 04:15 05/24/17 05/25/17 05/26/17 05:59 05:59 05:59 Intake Total 1999 1790 Output Total 2500 750 Balance -500 1040 PT 15.3 SEC (12.0-15.0) H 05/24/17 05:04 INR 1.21 (0.83-1.16) H 05/24/17 05:04 - Physical Exam Constitutional: no apparent distress, appears nourished, not in pain Cardiovascular: regular rate and rhythym, no murmur, rub, or gallop Respiratory: no respiratory distress, no rales or rhonchi, clear to auscultation Neurologic: AAOx3, sensation intact bilaterally, other (no saddle anethesia) ICD10 Worksheet Patient Problems: Problems Problem Status Onset Uterine prolapse Acute Adenocarcinoma of breast Acute 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
--- NOTE | 2017-05-25 15:07 | ECHO ---
[id number] + + [address] : : [place] [address] : : [phone] + + Adult Echocardiographic Report + + :Name: KIERAN COYLE Study Date: 05/24/2017 12:24 PM : : Hospital Admission Number: [id number] : :: 1975 Gender: Female : :Age: 41 yrs Race: WH : :Reason For Study: Eval pre chemo : :History: Spinal mets/breast implants : + + MMode/2D Measurements & Calculations IVSd: 0.78 cm LVIDd: 4.6 cm FS: 27.8 % Ao root diam: 2.9 cm LVPWd: 0.73 cm LVIDs: 3.3 cm EDV(Teich): 99.0 ml ESV(Teich): 45.5 ml EF(Teich): 54.0 % Normal Measurement Values: + + :LVIDd (3.5-5.7cm) IVSd (0.6-1.1cm) LVPWd (0.6-1.1cm) Aortic Root (2.0-3.7cm)Left Atrium (1.5-4.0cm): :LV Vol(d) (76-115ml) LV Vol(s) (29-48ml) Ejec Fraction (50-65%)PV Agustin (0.6- 1.2m/s) TV Agustin (0.4-1.0m/s) : :MV E Agustin (0.8-1.0m/s)MV A Agustin (0.3-1.0m/s)LVOT Agustin (0.7-1.2m/s) Asc Ao Agustin ( 0.9-1.8m/s) : + + Doppler Measurements & Calculations MV E max agustin: 60.7 cm/sec Ao mean P.2 mmHg MV A max agustin: 41.5 cm/sec Ao V2 mean: 85.4 cm/sec MV E/A: 1.5 Ao V2 VTI: 18.9 cm Left Ventricle The left ventricle is normal in size. There is normal left ventricular wall thickness. Left ventricular systolic function is normal. Ejection Fraction = 60-65%. Right Ventricle The right ventricle is normal in size and function. Atria The left atrial size is normal. Right atrial size is normal. The interatrial septum is intact with no evidence for an atrial septal defect. Mitral Valve The mitral valve is normal in structure and function. There is no evidence of mitral valve prolapse. There is no mitral valve stenosis. Tricuspid Valve Normal tricuspid valve. Aortic Valve The aortic valve opens well. There is no aortic stenosis. There is no aortic insufficiency. Pulmonic Valve The pulmonic valve is not well visualized. There is no pulmonic valvular regurgitation. Great Vessels The aortic root is normal size. Pericardium/Pleural There is no pericardial effusion. Conclusion A complete two-dimensional transthoracic echocardiogram was performed (2D, M-mode, Doppler and color flow Doppler). The study was technically difficult. [facility] ultrasound strain imaging for exact EF (done by [facility]). Left ventricular systolic function is normal. Ejection Fraction = 60-65%. Final Reading Physician: Ronald Rodarte signed on 05/25/2017 03:06 PM Ordering Physician: Sheron Melendrez Performed By: Lona Choudhury RDCS
[2017-05-25] MEDS: TAMOXIFEN CITRATE 10 MG TAB PO SCH (17:10)
[2017-05-26] MEDS: DEXAMETHASONE 4 MG TAB PO SCH ×4 (00:32→18:03)
[2017-05-26] MEDS: GABAPENTIN 300 MG CAP PO SCH ×3 (08:52→21:14)
[2017-05-26] MEDS: CYCLOBENZAPRINE 10 MG TAB PO SCH ×3 (08:52→21:13)
[2017-05-26] MEDS: ENOXAPARIN 40 MG/0.4 ML SYR SC SCH (08:53)
[2017-05-26] MEDS: SENNOSIDES/DOCUSATE SODIUM TAB PO SCH ×2 (09:32→21:13)
--- NOTE | 2017-05-26 12:08 | SOAPPROG ---
SOAP Progress Note Assessment/Plan: E&M for breast cancer * Multiple skeletal and liver lesions: Concerning for metastatic breast cancer and biopsy pending, which will help confirm suspicion and direct therapy. She is undergoing palliative xrt. Zometa given 05/24. Baseline ECHO good. Tentative plan Taxol/Herceptin/Perjeta to begin approximately 2 weeks after completion of XRT. * History of stage IIA breast cancer 2010, ER+, Her2 +: Underwent mastectomy, adjuvant TCH, adjuvant xrt, adjuvant tamoxifen. * Disposition: When able to get around and be independent, can go home with therapy. Definitely better on gabapentin and agree with increasing to TID. Encouraged her to take out the velasco. Subjective: Pain is much better since starting gabapentin. Wanting to get up. No new complaints. Mother in room with patient. Objective: Vital Signs Temp Pulse Resp BP Pulse Ox 36.9 C 71 18 109/60 94 05/26/17 09:56 05/26/17 09:56 05/26/17 09:56 05/26/17 09:56 05/26/17 09:56 Laboratory Results 05/24/17 05:04 05/22/17 04:15 05/25/17 05/26/17 05/27/17 05:59 05:59 05:59 Intake Total 1790 2200 Output Total 750 2400 550 Balance 1040 -200 -550 PT 15.3 SEC (12.0-15.0) H 05/24/17 05:04 INR 1.21 (0.83-1.16) H 05/24/17 05:04 ECHO: EF = 60-65% Physical Exam - Physical Exam General Appearance: no apparent distress Respiratory: lungs clear Cardiac/Chest: regular rate, rhythm Abdomen: soft ICD10 Worksheet Patient Problems: Problems Problem Status Onset Adenocarcinoma of breast Acute Intractable back pain Acute 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
--- NOTE | 2017-05-26 13:53 | HOSPPROG ---
Hospitalist Progress Note Assessment/Plan: 41 yo F with hx of breast cancer diagnosed in 2010 s/p bilateral mastectomy, xrt , chemo and herceptin pw radicular back pain found to have diffuse skeletal mets # widespread spinal mets with large sacral tumor and diffuse mets noted on personal review of C,T, L spine MRI. -continue radiation -Neurontin increased to TID on 05/26 -cont oxycodone for Breakthrough pain # recurrent breast adenocarcinom: as above, presumed to be recurrence of Her-2/ maddie positive breast ca originally dx on 2010 at stage 2A. Will need to get repeat confirmatory biopsy which is planned by IR in am. Oncology involved and at this point recommending likely tx with paclitaxel, trastuzumab, pertuzumab. # urinary retention: -pt is reluctant to have velasco removed today due to immobility and pain with having to use a bed pain # pain secondary to metastatic disease -see plan as per above # IP status given multiple active issues as above Dispo: DC home once pain is controlled and she is able to function Subjective: decreasing pain since starting neurontin. no other acute complaints. still does not feel sstrong enough to DC home Objective: Vital Signs Temp Pulse Resp BP Pulse Ox 36.9 C 71 18 109/60 94 05/26/17 09:56 05/26/17 09:56 05/26/17 09:56 05/26/17 09:56 05/26/17 09:56 Laboratory Results 05/24/17 05:04 05/22/17 04:15 05/25/17 05/26/17 05/27/17 05:59 05:59 05:59 Intake Total 1790 2200 Output Total 750 2400 550 Balance 1040 -200 -550 PT 15.3 SEC (12.0-15.0) H 05/24/17 05:04 INR 1.21 (0.83-1.16) H 05/24/17 05:04 gen nad no saddle anesthesia flex/ext feet ICD10 Worksheet Patient Problems: Problems Problem Status Onset Uterine prolapse Acute Adenocarcinoma of breast Acute 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
--- NOTE | 2017-05-26 16:39 | ASMTCMCOM ---
CM Note CM Note Notes: Pt's pain is better today and she is able to work with PT/OT. PT/OT currently recommending HC. Discussed with pt - she would like to see how she is feeling tomorrow. Had friends visiting so did not prolong discussion. Pt is hopeful she will d/c home Wednesday. Date Signed: 05/26/2017 04:38 PM Electronically Signed By:HAKAN Childers
[2017-05-26] MEDS: DIAZEPAM 10 MG/2 ML SYR IVP PRN (21:14)
[2017-05-27] MEDS: DEXAMETHASONE 4 MG TAB PO SCH ×5 (00:12→19:57)
[2017-05-27] MEDS ORDERED: CYCLOBENZAPRINE 10 MG TAB PO PRN (09:03)
--- NOTE | 2017-05-27 09:49 | HOSPPROG ---
Hospitalist Progress Note Assessment/Plan: 41 yo F with hx of breast cancer diagnosed in 2010 s/p bilateral mastectomy, xrt , chemo and herceptin presented with radicular back pain found to have diffuse skeletal mets # widespread spinal mets with large sacral tumor and diffuse mets noted on personal review of C,T, L spine MRI. Pain is mostly radicular in nature. -continue radiation -cont decadron, day 5 of high dose, consider weaning dose, will d/w onc -Neurontin increased to TID on 05/26, this dose is effective -prn oxycodone for Breakthrough pain # recurrent breast adenocarcinoma: as above, presumed to be recurrence of Her-2/ maddie positive breast ca originally dx on 2010 at stage 2A. S/P iliac crest bone bx. Oncology involved and at this point recommending likely tx with paclitaxel , trastuzumab, pertuzumab. -f/u bone bx path results # urinary retention: -d/c velasco, now ambulatory # pain secondary to metastatic disease -see plan as per above # IP status given multiple active issues as above # DVT PPLX - lovenox Dispo: DC home once pain is controlled and she is able to function, likely tomorrow, working with PT today Subjective: Pt doing better. Pain is controlled. She feels neurontin has been most effective. Able to ambulate now. Worried about stairs at home. No F/C, CP or SOB. Objective: Vital Signs Temp Pulse Resp BP Pulse Ox 36.6 C 75 15 106/69 95 05/27/17 09:10 05/27/17 09:10 05/27/17 09:10 05/27/17 09:10 05/27/17 09:10 Laboratory Results 05/24/17 05:04 05/22/17 04:15 05/26/17 05/27/17 05/28/17 05:59 05:59 05:59 Intake Total 2200 1600 Output Total 2400 1100 300 Balance -200 500 -300 PT 15.3 SEC (12.0-15.0) H 05/24/17 05:04 INR 1.21 (0.83-1.16) H 05/24/17 05:04 - Physical Exam Constitutional: no apparent distress Eyes: PERRL Ears, Nose, Mouth, Throat: moist mucous membranes Cardiovascular: regular rate and rhythym Respiratory: no respiratory distress, clear to auscultation Gastrointestinal: normoactive bowel sounds, soft, non-tender abdomen Skin: warm Musculoskeletal: full muscle strength, other (sensation intact) Neurologic: AAOx3 Psychiatric: interacting appropriately ICD10 Worksheet Patient Problems: Problems Problem Status Onset Adenocarcinoma of breast Acute Intractable back pain Acute 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
[2017-05-27] MEDS: ENOXAPARIN 40 MG/0.4 ML SYR SC SCH (10:37)
[2017-05-27] MEDS: GABAPENTIN 300 MG CAP PO SCH ×3 (10:37→22:12)
[2017-05-27] MEDS: SENNOSIDES/DOCUSATE SODIUM TAB PO SCH ×2 (10:39→19:57)
[2017-05-27] MEDS: CYCLOBENZAPRINE 10 MG TAB PO SCH (10:58)
--- NOTE | 2017-05-27 14:26 | SOAPPROG ---
SOAP Progress Note Assessment/Plan: E&M for breast cancer * Metastatic breast cancer with multiple skeletal and liver lesions; ER negative ; HER2 pending: Tamoxifen stopped. Continue palliative xrt. Zometa given 05/24. Baseline ECHO good. Tentative plan Taxol/Herceptin/Perjeta to begin approximately 2 weeks after completion of XRT. * History of stage IIA breast cancer 2010, ER+, Her2 +: Underwent mastectomy, adjuvant TCH, adjuvant xrt, adjuvant tamoxifen. * * Pain Control: Much better on gabapentin; continue. Use oxy IR for breakthrough. Recommend taper dex to off over next week. * Disposition: Working with PT and OT and she has support available at home now. Probably ready tomorrow. Subjective: Feeling better on gabapentin with much better pain control. Hardly needing any narcotics and walking easier. Working with PT and OT. Lauren taken out and she is urinating fine. Objective: Vital Signs Temp Pulse Resp BP Pulse Ox 36.6 C 75 15 106/69 95 05/27/17 09:10 05/27/17 09:10 05/27/17 09:10 05/27/17 09:10 05/27/17 09:10 Laboratory Results 05/24/17 05:04 05/22/17 04:15 05/26/17 05/27/17 05/28/17 05:59 05:59 05:59 Intake Total 2200 1600 400 Output Total 2400 1100 600 Balance -200 500 -200 PT 15.3 SEC (12.0-15.0) H 05/24/17 05:04 INR 1.21 (0.83-1.16) H 05/24/17 05:04 Physical Exam - Physical Exam General Appearance: no apparent distress Respiratory: lungs clear Cardiac/Chest: regular rate, rhythm Abdomen: soft ICD10 Worksheet Patient Problems: Problems Problem Status Onset Adenocarcinoma of breast Acute Intractable back pain Acute 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
[2017-05-27] MEDS: DIAZEPAM 5 MG TAB PO PRN (22:12)
[2017-05-28] MEDS: DEXAMETHASONE 4 MG TAB PO SCH ×2 (04:05→21:21)
--- NOTE | 2017-05-28 09:22 | SOAPPROG ---
SOAP Progress Note Assessment/Plan: E&M for breast cancer * Metastatic breast cancer with multiple skeletal and liver lesions; ER negative ; HER2 pending: Tamoxifen stopped. Continue palliative xrt. Zometa given 05/24. Baseline ECHO good. Tentative plan Taxol/Herceptin/Perjeta to begin approximately 2 weeks after completion of XRT. Today is day 7/10 of palliative radiation. * History of stage IIA breast cancer 2010, ER+, Her2 +: Underwent mastectomy, adjuvant TCH, adjuvant xrt, adjuvant tamoxifen. * Pain Control: Much better on gabapentin; continue. Use oxy IR for breakthrough. Recommend taper dex to off over next week. * Disposition: Working with PT and OT and she has support available at home now. Subjective: Getting better and more confident with walking and standing. Hasn't tried stairs yet. Pain better controlled and sleeping well. Objective: Vital Signs Temp Pulse Resp BP Pulse Ox 36.9 C 62 12 105/61 93 05/28/17 07:56 05/28/17 07:56 05/28/17 07:56 05/28/17 07:56 05/28/17 07:56 Laboratory Results 05/24/17 05:04 05/22/17 04:15 05/27/17 05/28/17 05/29/17 05:59 05:59 05:59 Intake Total 1600 1200 Output Total 1100 1401 Balance 500 -201 PT 15.3 SEC (12.0-15.0) H 05/24/17 05:04 INR 1.21 (0.83-1.16) H 05/24/17 05:04 Physical Exam - Physical Exam General Appearance: no apparent distress Respiratory: lungs clear Cardiac/Chest: regular rate, rhythm Abdomen: soft ICD10 Worksheet Patient Problems: Problems Problem Status Onset Adenocarcinoma of breast Acute Intractable back pain Acute 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
[2017-05-28] MEDS: SENNOSIDES/DOCUSATE SODIUM TAB PO SCH ×2 (09:35→21:57)
[2017-05-28] MEDS: ENOXAPARIN 40 MG/0.4 ML SYR SC SCH (09:38)
[2017-05-28] MEDS: GABAPENTIN 300 MG CAP PO SCH ×3 (09:38→21:21)
--- NOTE | 2017-05-28 09:39 | HOSPPROG ---
Hospitalist Progress Note Assessment/Plan: 41 yo F with hx of breast cancer diagnosed in 2010 s/p bilateral mastectomy, xrt , chemo and herceptin presented with radicular back pain found to have diffuse skeletal mets # widespread spinal mets with large sacral tumor and diffuse mets noted on personal review of C,T, L spine MRI. Pain is mostly radicular in nature. Case discussed with Dr. Melendrez. -continue radiation -cont decadron, started to wean yesterday, change to BID dosing today for a few days -Neurontin increased to TID on 05/26, this dose is effective -prn oxycodone for Breakthrough pain # recurrent breast adenocarcinoma: as above, presumed to be recurrence of Her-2/ maddie positive breast ca originally dx on 2010 at stage 2A. S/P iliac crest bone bx. Oncology involved and at this point recommending likely tx with paclitaxel , trastuzumab, pertuzumab. -f/u bone bx path results # urinary retention: -d/c'd velasco 05/27, now ambulatory # pain secondary to metastatic disease -see plan as per above # IP status given multiple active issues as above # DVT PPLX - lovenox Dispo: DC home once pain is controlled and she is able to function, likely tomorrow, working with PT today Subjective: Pt doing better today, pain improved. Ambulating, but still concerned about navigating stairs at home, needs more work with PT prior to dc. No fevers. Objective: Vital Signs Temp Pulse Resp BP Pulse Ox 36.9 C 62 12 105/61 93 05/28/17 07:56 05/28/17 07:56 05/28/17 07:56 05/28/17 07:56 05/28/17 07:56 Laboratory Results 05/24/17 05:04 05/22/17 04:15 05/27/17 05/28/17 05/29/17 05:59 05:59 05:59 Intake Total 1600 1200 Output Total 1100 1401 Balance 500 -201 PT 15.3 SEC (12.0-15.0) H 05/24/17 05:04 INR 1.21 (0.83-1.16) H 05/24/17 05:04 - Physical Exam Constitutional: no apparent distress Eyes: PERRL Ears, Nose, Mouth, Throat: moist mucous membranes Cardiovascular: regular rate and rhythym Respiratory: no respiratory distress Gastrointestinal: normoactive bowel sounds, soft, non-tender abdomen Skin: warm Musculoskeletal: full muscle strength Neurologic: AAOx3 Psychiatric: interacting appropriately ICD10 Worksheet Patient Problems: Problems Problem Status Onset Adenocarcinoma of breast Acute Intractable back pain Acute 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
[2017-05-28] MEDS: DIAZEPAM 5 MG TAB PO PRN (21:21)
[2017-05-29 05:05] VITALS: PULSE 64
[2017-05-29 07:53] VITALS: BP 90/51; RESP 16; TEMP 98.6; O2SAT 97
[2017-05-29] MEDS: ENOXAPARIN 40 MG/0.4 ML SYR SC SCH (10:02)
[2017-05-29] MEDS: GABAPENTIN 300 MG CAP PO SCH ×2 (10:02→15:35)
[2017-05-29] MEDS: DEXAMETHASONE 4 MG TAB PO SCH (10:02)
[2017-05-29] MEDS: SENNOSIDES/DOCUSATE SODIUM TAB PO SCH (10:07)
--- NOTE | 2017-05-29 11:28 | ASMTCMCOM ---
CM Note CM Note Notes: Pt ready for DC today. Met with pt to discuss DC needs. Pt would like home care PT/OT. Patient chose [facility]. Pt also welcomes palliative care at home. Alerted [facility]. All initial clinicals faxed. Pt may need a hospital bed in the future but for now, she wants to try her bed and couch at home. Gave her info about ordering a bed if she decides she needs it. Final orders will be faxed when ready. Date Signed: 05/29/2017 11:27 AM Electronically Signed By:Agatha Lane LCSW
--- NOTE | 2017-05-29 15:52 | PDIAF ---
- Diagnosis Diagnosis: metastatic breast cancer Code Status: Full Code - Medication Management Discharge Medications: Medications to Continue on Transfer Tamoxifen Citrate 20 mg PO DAILY #0 10/26/16 [Last Taken 05/20/17] Cholecalciferol (Vitamin D3) [Vitamin D3] 2,000 unit PO DAILY 05/21/17 [Last Taken 05/21/17] Acetaminophen [Mapap] 1,000 mg PO Q8H #90 capsule 05/29/17 [Last Taken Unknown] Dexamethasone [Decadron 4 MG (*)] 4 mg PO BID #7 tab 05/29/17 [Last Taken Unknown] Diazepam [Valium 5 MG (*)] 5 mg PO Q8H PRN #30 tab 05/29/17 [Last Taken Unknown] Polyethylene Glycol 3350 [Miralax 17 gm (*)] 17 gm PO DAILY PRN pkt 05/29/17 [ Last Taken Unknown] Pregabalin [Lyrica] 300 mg PO TID #90 capsule 05/29/17 [Last Taken Unknown] Sennosides/Docusate Sodium [Senokot-S] 1 - 2 tab PO BID tab 05/29/17 [Last Taken Unknown] oxyCODONE IR [Oxycodone Ir (*)] 5 - 10 mg PO Q3 PRN #30 tab 05/29/17 [Last Taken Unknown] Discharge Medications: Refer to the Discharge Home Medication list for PRN reason. - Orders Services needed: Home Care, Physical Therapy, Occupational Therapy Home Care Face to Face: I certify that this patient was under my care and that I had the required [id number] encounter meeting the encounter requirements on the discharge day. My findings support the fact that the patient is homebound as defined in CMS Chapter 7 Medicare Benefits Manual 30.1.1, The condition of the patient is such that there exists a normal inability to leave home and consequently, leaving home would require a considerable and taxing effort. Diet Recommendation: no restrictions on diet - Follow Up Care Current Providers and Referrals: Paula Montoya MD [Primary Care Provider] - Cecilia Dhaliwal MD [Medical Doctor] -
--- NOTE | 2017-05-30 06:40 | GDS ---
[f rep st] DISCHARGE SUMMARY DISCHARGE DIAGNOSES: 1. 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 2. Urinary retention, resolved. 3. Acute pain secondary to metastatic disease, controlled. CONSULTANTS: 1. Sheron Melendrez MD, Oncology. 2. Fabio Salazar MD, Neurosurgery. IMAGING STUDIES/PROCEDURES: 1. MRI of the cervical, thoracic, and lumbar spine showed severe, widespread, osseous metastases, wo rse in the sacrum, with obliteration of the sacral spinal canal and a mild pathologic compression fra cture of T12, in addition to metastatic involvement of C5 and T4. Metastases to the liver and lungs a re also noted. 2. Chest CT, May 22 shows multiple, bilateral, metastatic pulmonary nodules as well as osseous mets previously described. 3. Abdomen and pelvis CT shows hepatic metastases. Again, extensive osseous metastases and bilatera l iliac bone osseous metastases. 4. CT-guided bone biopsy, May 24, of the left anterior iliac wing bone lesion, with pathology confirming metastatic carcinoma, morphologically compatible with a primary breast source. 5. Brain MRI, May 24, was negative for intracranial metastatic lesions. 6. Echocardiogram on May 24 showed normal left ventricular systolic function. HISTORY: For details, please see the history and physical dated May 22. In brief, the patient is a 41-year-old female with a history of breast cancer, originally diagnosed in 2010, treated with b ilateral mastectomies, chemotherapy, radiation, and Herceptin. She has been cancer-free since that t ; however, developed increasing low back pain in November, and presented to the emergency department with worsening pain. Imaging was consistent with extensive metastases, and the patient was admitted for pain control and further management decisions. HOSPITAL COURSE: Patient was admitted to the med/surge unit. As above, it was confirmed these metas tatic lesions were consistent with recurrence of breast cancer with wide metastatic disease. She was treated with dexamethasone and a taper was initiated prior to discharge. A Lauren catheter was place d for urinary retention; however, this was removed once the patient was ambulatory, and she was able to void. Neurosurgery consult was obtained, who did not feel surgical intervention would be necessary, but rec ommended she would benefit most from spinal radiation and then possibly more chemotherapy. Oncology consult was also obtained, who recommended palliative radiation therapy for pain control and also dis cussed further treatment options for recurrent, metastatic, HER-2/maddie-positive breast cancer once she has completed palliative radiation therapy. The patient's pain was best controlled with Neurontin a nd she was discharged on 300 mg 3 times daily. In addition, she received p.r.n. opioids as well as V alium. She worked with PT/OT and was able to navigate stairs, and was deemed safe for discharge home . DISPOSITION: Patient is discharged home in stable condition. FOLLOWUP: 1. Dr. Cecilia Dhaliwal MD, Primary Oncology. 2. Paula Montoya MD, primary care provider. DISCHARGE MEDICATIONS: Please see [email or web address] for completed outpatient medication list. New medication s on discharge include: 1. Tylenol 1000 mg p.o. q.8 hours p.r.n.. 2. Dexamethasone 4 mg p.o. twice daily for 2 more days, followed by 4 mg p.o. daily for 3 more days. 3. Valium 5 mg p.o. q.8 hours p.r.n. 4. Oxycodone 5-10 mg p.o. q.3 hours p.r.n., #30. No refills. 5. MiraLAX. 6. Senokot. 7. Gabapentin 300 mg p.o. three times daily #90. No refills. Discontinued medications include: 1. Tramadol. 2. Prednisone. 3. Flexeril. 4. Ibuprofen. /[id number]/MODL
== END 2017-05-29 17:17 | disposition home health service (06) | DRG 478 ==
LOC: EDUNIT# → F1N 22:45
PROVIDERS: ADMIT Student in an Organized Health Care Education/Training Program; ATTEND Hospitalist
PROC: 0QB33ZX Excision of Left Pelvic Bone, Percutaneous Approach, Diagnostic (ICD-10-PCS; principal; 2017-05-25)
DX: C41.2 Malignant neoplasm of vertebral column (principal); C41.4 Malignant neoplasm of pelvic bones, sacrum and coccyx; M84.58XA Pathological fracture in neoplastic disease, other specified site, initial encounter for fracture; C78.7 Secondary malignant neoplasm of liver and intrahepatic bile duct; C78.01 Secondary malignant neoplasm of right lung; C78.02 Secondary malignant neoplasm of left lung; Z85.3 Personal history of malignant neoplasm of breast; Z90.13 Acquired absence of bilateral breasts and nipples; R33.9 Retention of urine, unspecified
CPT/HCPCS: 96374; 97116-GP; 97162-GP; 97166-GO; 97168-GO; 97530-GO; 97530-GP; 97535-GO; A9585; J1100; J1170; J1650; J2250; J2310; J3010; J3489; Q9967

== ENCOUNTER 2017-06-10 05:53 | Day surgery (SDC) | payer OTHER ==
[2017-06-10] MEDS ORDERED: ceFAZolin 2 GM/DEXTROSE 100 ML IV ONE (06:11)
[2017-06-10] MEDS ORDERED: LIDOCAINE 1% 2 ML INJ ID PRN (06:24)
[2017-06-10] MEDS ORDERED: LR 1,000 ML IV ONE (06:24)
[2017-06-10] MEDS ORDERED: ONDANSETRON 4 MG/2 ML VIAL IVP PRN ×2 (07:07→08:57)
[2017-06-10] MEDS ORDERED: ALBUTEROL 3 ML DEYVIAL IH PRN (07:07)
[2017-06-10] MEDS ORDERED: NALOXONE HCL 0.4 MG/ML INJ IVP PRN (07:07)
[2017-06-10] MEDS ORDERED: ACETAMINOPHEN 500 MG TAB PO PRN (07:07)
[2017-06-10] MEDS ORDERED: fentaNYL 100 MCG/2 ML INJ IVP PRN (07:07)
--- NOTE | 2017-06-10 07:08 | PDANEPAE ---
ANE History of Present Illness [place] ANE Past Medical History - Cardiovascular History Hx Hypertension: No Hx Arrhythmias: No Hx Chest Pain: No Hx Coronary Artery / Peripheral Vascular Disease: No Hx CHF / Valvular Disease: No Hx Palpitations: No - Pulmonary History Hx COPD: No Hx Asthma/Reactive Airway Disease: No Hx Recent Upper Respiratory Infection: No Hx Oxygen in Use at Home: No Hx Sleep Apnea: No Sleep Apnea Screening Result - Last Documented: Negative Pulmonary History Comment: PULM NODULES - Neurologic History Hx Cerebrovascular Accident: No Hx Seizures: No Hx Dementia: No - Endocrine History Hx Diabetes: No - Renal History Hx Renal Disorders: No - Liver History Hx Hepatic Disorders: No - Neurological & Psychiatric Hx Hx Neurological and Psychiatric Disorders: Yes Neurological / Psychiatric History Comment: PANIC ATTACKS - Cancer History Hx Cancer: Yes Cancer History Comment: BREAST CA. NOW WITH METS - Congenital Disorder History Hx Congenital Disorders: No - GI History Hx Gastrointestinal Disorders: No - Other Health History Other Health History: PLEASE DON'T TWIST MY BODY CAUSES LOTS OF DISCOMFORT, USING WALKER - Chronic Pain History Chronic Pain: Yes (SACRUM AREA AND NERVE PAIN DOWN LISETTE LEGS) - Surgical History Prior Surgeries: HYSTERECTOMY 10/2016. LISETTE MASTECTOMIES & RECONSTRUCTION. WISDOM TEETH ANE Review of Systems Review of Systems: - Exercise capacity METS (RN): 4 METS ANE Patient History - Allergies Allergies/Adverse Reactions: No Known Allergies Allergy (Verified 06/10/17 06:22) - Home Medications Home Medications: Cholecalciferol (Vitamin D3) [Vitamin D3] 2,000 unit PO DAILY 05/21/17 [Last Taken 06/09/17 08:30] Acetaminophen [Mapap] 1,000 mg PO DAILY 06/08/17 [Last Taken 06/09/17 08:30] Diazepam [Valium 5 MG (*)] 5 mg PO HS 06/08/17 [Last Taken 06/09/17 21:30] Sennosides/Docusate Sodium [Senokot-S] 1 - 2 tab PO HS 06/08/17 [Last Taken 21:30] - NPO status NPO Since - Liquids (Date): 06/09/17 NPO Since - Liquids (Time): 21:00 NPO Since - Solids (Date): 06/09/17 NPO Since - Solids (Time): 18:30 - Smoking Hx Smoking Status: Never smoked - Family Anes Hx Family Hx Anesthesia Complications: NEG ANE Labs/Vital Signs - Vital Signs Blood Pressure: 97/52 Heart Rate: 76 Respiratory Rate: 14 O2 Sat (%): 95 Height: 160.02 cm Weight: 58.513 kg ANE Physical Exam - Airway Neck exam: FROM Mallampati Score: Class 2 - Pulmonary Pulmonary: clear to auscultation - Cardiovascular Cardiovascular: regular rate and rhythym - ASA Status ASA Status: II ANE Anesthesia Plan Anesthesia Plan: GA w LMA
[2017-06-10] MEDS ORDERED: LIDOCAINE 1% 300 MG/30 ML SDV ONE (07:10)
[2017-06-10] MEDS ORDERED: PROPOFOL/EMULSION 500 MG/50 ML BOTTLE IV ONE (07:10)
[2017-06-10] MEDS ORDERED: LIDOCAINE 2% 5 ML SDV ONE (07:11)
[2017-06-10] MEDS ORDERED: BUPIVACAINE 0.5% 30 ML SDV ONE ×2 (07:12→07:31)
[2017-06-10] MEDS ORDERED: BACITRACIN ZINC 14.2 GM OINTTUBE TP ONE (07:12)
[2017-06-10] MEDS ORDERED: SODIUM BICARBONATE 10 MEQ/10 ML SYR IVP ONE (07:12)
[2017-06-10] MEDS ORDERED: PROPOFOL 200 MG/20 ML VIAL ONE (07:13)
--- NOTE | 2017-06-10 07:13 | PDHPUP ---
History & Physical Update H&P update statement: This history and physical update is based on an assessment of the patient which was completed after admission or registration (within 24 hours), but prior to the surgery/procedure. H&P update: H&P reviewed & patient examined, no change in patient's condition since H&P completed
[2017-06-10] MEDS ORDERED: fentaNYL 100 MCG/2 ML INJ ONE (07:17)
[2017-06-10] MEDS ORDERED: ONDANSETRON 4 MG/2 ML VIAL ONE (07:21)
[2017-06-10] MEDS ORDERED: DEXAMETHASONE 4 MG/ML VIAL ONE (07:21)
--- NOTE | 2017-06-10 08:36 | POSTANESTH ---
Post Anesthetic Evaluation Cardiovascular Status: Normal, Stable Respiratory Status: Normal, Stable Level of Consciousness/Mental Status: Can Participate in Eval, Alert and Oriented Pain Control: Adequate, Prn Tx Ordered Nausea/Vomiting Control: Adequate, Prn Tx Ordered Complications Possibly Related to Anesthesia: None Noted
--- NOTE | 2017-06-10 08:56 | POSTOPPROG ---
Post Op Note Date of Operation: 06/10/17 Surgeon: Robbie Santos Anesthesiologist: MINA Anesthesia: GET(General Endotracheal) Pre-op Diagnosis: BREAST CANCER Post-op Diagnosis: SAME Indication: CHEMO ACCESS Procedure: LEFT SUBCLAVIAN PORT WITH FLOURO Findings: GOOD FLOW AND POSITION Inf/Abcess present in the surg proc area at time of surgery?: No Depth: Deep Incisional (Fascial) EBL: Minimal Complications: 0
[2017-06-10] MEDS ORDERED: HYDROCODONE/APAP 5/325 TAB PO PRN (08:57)
[2017-06-10 09:21] VITALS: BP 101/48; PULSE 63; TEMP 96.8
[2017-06-10 09:32] VITALS: RESP 15; O2SAT 97
--- NOTE | 2017-06-16 04:12 | GOP ---
[f rep st] OPERATIVE REPORT DATE OF OPERATION: SURGEON: Robibe Santos MD PRODUCTION ASSISTANT: There was no trade sales assistant. PREOPERATIVE DIAGNOSIS: Recurrent breast cancer. POSTOPERATIVE DIAGNOSIS: Recurrent breast cancer. PROCEDURE PERFORMED: Left subclavian port placement with fluoroscopic guidance. FINDINGS: The patient was found to have good flow and good position of her catheter. DESCRIPTION OF PROCEDURE: The patient was taken to the operating room where she received satisfactor y general endotracheal anesthesia. She was placed in the supine position, prepped and draped in the usual sterile fashion. A single stick was made in the left subclavian vein. Guidewire was introduce d. Position was confirmed with fluoroscopy. A subcu pocket was made for the port placement, which s he requested to be up laterally. Dilator was passed over the guidewire. The port was pos itioned in the subcutaneous pocket and the catheter was trimmed to the appropriate length using fluor oscopic guidance and then introduced via the introducer sheath into the right atrium. Good backflow was achieved. The catheter was flushed with heparin and saline. The port was secured to the fascia with 3-0 Vicryl. Pocket was closed with 3-0 Vicryl for the subcu and a 4-0 Monocryl subcuticular sti tch for the skin. The wounds were dressed. The catheter was flushed with heparin and saline and te eared to function well. She tolerated the procedure well, was taken to the recovery room in good con dition. There were no complications. Copy requested to: [facility] /[id number]/MODL
== END 2017-06-10 10:19 | disposition home or self-care (01) ==
LOC: FSGY 05:53
PROVIDERS: ATTEND Surgery
DX: C50.911 Malignant neoplasm of unspecified site of right female breast (principal); C79.51 Secondary malignant neoplasm of bone; C78.01 Secondary malignant neoplasm of right lung; C78.02 Secondary malignant neoplasm of left lung
CPT/HCPCS: C1788; J0690; J1100; J1642; J2405; J2704; J3010

== ENCOUNTER 2017-12-30 09:48 | Observation (INO) | payer OTHER ==
--- NOTE | 2017-12-30 07:53 | GHP ---
[f rep st] PREOP HISTORY AND PHYSICAL DATE OF ADMISSION: 12/30/2017 DATE OF SURGERY: Slated for 12/30/2017, on the gynecology service. PREOPERATIVE HISTORY: The patient is a 42-year-old, para 2, white female, who has a history of stage II breast cancer, which has metastasized to the spine, lung, and liver. The patient has been advised by oncologists that it would be best if the patient had oophorectomies. The patient wants her ovaries removed to give her the most options for treatment of her cancer. The patient has been counseled about risks and benefits, and wants to proceed with laparoscopic removal. Consent form signed. PAST MEDICAL HISTORY: Breast cancer, initially stage IIA, diagnosed in May 2011. Initially treated with bilateral mastectomies with reconstruction, followed by chemotherapy and radiation treatment. Patient was on tamoxifen until February 2012. The patient noted to have widespread bony metastasis in the sacral spinal canal as well as liver and lung metastases in May 2017. The patient has been on chemotherapy and had radiation therapy, which has shown good response. Additional history of uterine prolapse, for which the patient had removal in 2016. PAST SURGICAL HISTORY: Bilateral mastectomies, total laparoscopic hysterectomy and bilateral salpingectomies in October 2016. OBSTETRIC HISTORY: SVDs x2 at term in 2004 and 2006. SOCIAL HISTORY: The patient is , lives with her and 2 children. Patient is a nonsmoker. Occasional alcohol use. No drug use. FAMILY HISTORY: Positive for a grandmother with ovarian cancer and a great aunt with breast cancer. The patient has been tested and is BRCA negative. 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 Menstrual periods monthly up to her hysterectomy. No history of STDs. History of normal Pap smears. ALLERGIES: The patient has no known drug allergies. CURRENT MEDICATIONS: The patient is on gabapentin 600 mg 3 times a day, that was started in fall for neuropathy pain. Patient also on Herceptin every 3 weeks and Zometa every 6 weeks. Patient was started on anastrozole 3 weeks ago, but had to stop due to muscle fatigue. PHYSICAL EXAMINATION: At the time of preop, the patient is a well-developed, well-nourished, white female, in no physical discomfort. Patient is clinically afebrile. Blood pressure 106/64, weight 134 pounds. Lungs clear to auscultation bilaterally. CARDIOVASCULAR: Regular rate and rhythm. Abdomen is soft and nontender. Pelvic exam reveals no masses in the adnexa. Nontender ovaries. Vaginal cuff is intact. Extremities nontender and no edema. ASSESSMENT: Metastatic breast cancer, desiring removal of ovaries to optimize treatment options. PLAN: Proceed with laparoscopic removal of her ovaries on 12/30/2017. Patient will have preoperative antibiotics and have SCDs during the procedure. The patient will use OxyContin postoperatively as needed, which she already has at home from her surgery last year. The patient had a history of panic attacks after her mastectomy surgery; however, did fine after anesthesia with the hysterectomy. /[id number]/MODL MTDD
[2017-12-30] MEDS ORDERED: BUPIVACAINE/EPI 0.5% 30 ML SDV ONE (14:32)
[2017-12-30] MEDS ORDERED: SILVER NITRATE APPLICATOR 1 APPL TP ONE (14:32)
[2017-12-30] MEDS ORDERED: ceFAZolin 2 GM/SWFI 2 GM/20 ML SYR IVP ONE (14:35)
[2017-12-30] MEDS ORDERED: LR 1,000 ML IV ONE (14:36)
[2017-12-30 15:32] LABS: PLATELET COUNT 213 10^3/uL (150-400)
[2017-12-30] MEDS ORDERED: MIDAZOLAM 2 MG/2 ML VIAL ONE ×2 (16:01→17:24)
--- NOTE | 2017-12-30 16:01 | PDANEPAE ---
ANE History of Present Illness B oophorectomy ANE Past Medical History - Cardiovascular History Hx Hypertension: No Hx Arrhythmias: No Hx Chest Pain: No Hx Coronary Artery / Peripheral Vascular Disease: No Hx CHF / Valvular Disease: No Hx Palpitations: No - Pulmonary History Hx COPD: No Hx Asthma/Reactive Airway Disease: No Hx Recent Upper Respiratory Infection: No Hx Oxygen in Use at Home: No Hx Sleep Apnea: No Sleep Apnea Screening Result - Last Documented: Negative Pulmonary History Comment: PULM NODULES - Neurologic History Hx Cerebrovascular Accident: No Hx Seizures: No Hx Dementia: No - Endocrine History Hx Diabetes: No Hypothyroid: No Hyperthyroid: No Obesity: no - Renal History Hx Renal Disorders: No - Liver History Hx Hepatic Disorders: No - Neurological & Psychiatric Hx Hx Neurological and Psychiatric Disorders: Yes Neurological / Psychiatric History Comment: PANIC ATTACKS. 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 NOW WITH METS - Congenital Disorder History Hx Congenital Disorders: No - GI History GERD: no Hx Gastrointestinal Disorders: No - Other Health History Other Health History: PLEASE DON'T TWIST MY BODY CAUSES LOTS OF DISCOMFORT, USING WALKER. Possible dx of dermatomyositis - Chronic Pain History Chronic Pain: Yes (SACRUM AREA AND NERVE PAIN DOWN LISETTE LEGS) - Surgical History Prior Surgeries: HYSTERECTOMY 10/2016. LISETTE MASTECTOMIES & RECONSTRUCTION. WISDOM TEETH ANE Review of Systems Review of Systems: - Exercise capacity METS (RN): 4 METS ANE Patient History - Allergies Allergies/Adverse Reactions: No Known Allergies Allergy (Verified 12/22/17 10:13) - Home Medications Home Medications: Cholecalciferol (Vitamin D3) [Vitamin D3] 2,000 unit PO DAILY 05/21/17 [Last Taken 1 Week Ago ~12/23/17] Clobetasol 0.05% [Temovate Cream] 1 te TP BID 12/17/17 [Last Taken 12/29/17] Fluocinolone 0.025% [Synalar 0.025%] 1 te TP BID 12/17/17 [Last Taken 12/29/17] Gabapentin [Neurontin 300 MG (*)] 600 mg PO TID 12/17/17 [Last Taken 12/30/17 12 :30] Pertuzumab [Perjeta] 0 mg IV Q21D 12/17/17 [Last Taken 12/27/17] Trastuzumab [Herceptin] 0 mg IV Q21D 12/17/17 [Last Taken 12/27/17] Zoledronic Acid [Zometa] 4 mg IV Q42D 12/17/17 [Last Taken 3 Weeks Ago ~12/09/17 ] - NPO status NPO Since - Liquids (Date): 12/30/17 NPO Since - Liquids (Time): 12:30 NPO Since - Solids (Date): 12/30/17 NPO Since - Solids (Time): 06:30 - Anes Hx Hx Anesthesia Complications (with details): "panic" on emergence from anesthesia - Smoking Hx Smoking Status: Never smoked - Family Anes Hx Family Hx Anesthesia Complications: NEG ANE Labs/Vital Signs - Labs Result Diagrams: 12/30/17 15:10 - Vital Signs Blood Pressure: 126/68 Heart Rate: 90 Respiratory Rate: 14 O2 Sat (%): 96 Height: 161.29 cm Weight: 62.142 kg ANE Physical Exam - Airway Neck exam: FROM, decreased ROM Mallampati Score: Class 1 Mouth exam: normal dental/mouth exam - Pulmonary Pulmonary: clear to auscultation - Cardiovascular Cardiovascular: regular rate and rhythym - ASA Status ASA Status: II ANE Anesthesia Plan Anesthesia Plan: general endotracheal anesthesia (Discussed use of IV scopolamine, which she received for her TRA surgery. Pt. agrees with using a lower dose this time.)
[2017-12-30] MEDS ORDERED: MIDAZOLAM 2 MG/2 ML VIAL IVP ONE (16:07)
[2017-12-30] MEDS ORDERED: fentaNYL 250 MCG/5 ML INJ ONE (16:14)
[2017-12-30] MEDS ORDERED: PROPOFOL 200 MG/20 ML VIAL ONE ×2 (16:14→16:20)
--- NOTE | 2017-12-30 16:29 | PDHPUP ---
History & Physical Update H&P update statement: This history and physical update is based on an assessment of the patient which was completed after admission or registration (within 24 hours), but prior to the surgery/procedure. H&P update: no change in patient's condition since H&P completed
[2017-12-30] MEDS ORDERED: SUGAMMADEX SODIUM 200 MG/2 ML VIAL IVP ONE (17:38)
[2017-12-30] MEDS ORDERED: ONDANSETRON 4 MG/2 ML VIAL ONE (17:38)
[2017-12-30] MEDS ORDERED: ROCURONIUM 100 MG/10 ML VIAL ONE (17:38)
[2017-12-30] MEDS ORDERED: DEXAMETHASONE 4 MG/ML VIAL ONE (17:39)
[2017-12-30] MEDS ORDERED: PHENYLEPHRINE HCL 100 MCG/ML SYR ONE (17:39)
[2017-12-30] MEDS ORDERED: KETOROLAC 30 MG/1 ML SDV ONE (17:52)
[2017-12-30] MEDS ORDERED: SCOPOLAMINE HYDROBROMIDE 1 MG/3 DAYS PATCH TD ONE (18:00)
--- NOTE | 2017-12-30 18:11 | POSTOPPROG ---
Post Op Note Date of Operation: 12/30/17 Surgeon: Paula Montoya Flight Kitchen Manager: Georgian Covarrubias RN, SA Anesthesiologist: Jesu Rodriguez MD Anesthesia: GET(General Endotracheal) Pre-op Diagnosis: metastatic breast cancer Post-op Diagnosis: same Indication: Br cancer since 2010, with ext mets noted 05/30, ooph rec for ca tx Procedure: LSC bilateral oophorectomies Findings: minimal scar in pelvis, ovaries up high on pelvic rim. ureters, ap/ liver nl Inf/Abcess present in the surg proc area at time of surgery?: No Depth: Organ Space EBL: Minimal Total fluids administered: 900 Complications: none Specimen(s): bilateral ovaries
[2017-12-30] MEDS ORDERED: NALOXONE HCL 0.4 MG/ML INJ IVP PRN (18:12)
[2017-12-30] MEDS ORDERED: oxyCODONE IR 5 MG TAB PO PRN (18:12)
[2017-12-30] MEDS ORDERED: HYDROCODONE/APAP 5/325 TAB PO PRN ×2 (18:12→22:41)
[2017-12-30] MEDS ORDERED: fentaNYL 100 MCG/2 ML INJ IVP PRN (18:12)
[2017-12-30] MEDS ORDERED: ACETAMINOPHEN 500 MG TAB PO PRN ×2 (18:12→22:41)
[2017-12-30] MEDS ORDERED: DEXAMETHASONE 4 MG/ML VIAL IVP PRN (18:12)
[2017-12-30] MEDS ORDERED: fentaNYL 100 MCG/2 ML INJ ONE (18:15)
[2017-12-30] MEDS ORDERED: ACETAMINOPHEN 500 MG TAB ONE (18:26)
--- NOTE | 2017-12-30 18:37 | POSTANESTH ---
Post Anesthetic Evaluation Cardiovascular Status: Normal, Stable Respiratory Status: Normal, Stable Level of Consciousness/Mental Status: Can Participate in Eval Pain Control: Adequate, Prn Tx Ordered Nausea/Vomiting Control: Adequate, Prn Tx Ordered Complications Possibly Related to Anesthesia: None Noted
[2017-12-31] MEDS: IBUPROFEN 600 MG TAB PO SCH ×2 (00:02→05:53)
--- NOTE | 2017-12-31 09:17 | SOAPPROG ---
SOAP Progress Note Assessment/Plan: Assessment: POD 1 s/p LSC bilat oophor Plan: doing well. d/c home 12/31/17 09:12 Subjective: Pt doing fine. Pt desired to stay last noc due to muscle fatigue after surg - which improved as anesth wore off. Was able to amb fine last noc to bathroom. urinating fine. pain at approx 2/10 - only used ibu last noc. felt a hot flash upon awakening once - slightly more emotional this am. Disc low estrogen impact for temp dysregulation and mood lability. Objective: Vital Signs Temp Pulse Resp BP Pulse Ox 36.3 C 67 16 95/58 L 94 12/31/17 04:00 12/31/17 04:00 12/31/17 04:00 12/31/17 04:00 12/31/17 04:00 Laboratory Results 12/30/17 15:10 12/30/17 12/31/17 01/01/18 05:59 05:59 05:59 Intake Total 1690 Output Total 1700 Balance -10 Physical Exam - Physical Exam General Appearance: WD/WN Abdomen: non-tender (minimal post op tenderness), soft, other (incisions CDI, bandaides in place) Skin: normal color, warm/dry Extremities: non-tender, pedal edema (none) Neuro/Psych: alert, normal mood/affect (slightly tearful) ICD10 Worksheet Patient Problems: Problems Problem Status Onset S/P bilateral oophorectomy Acute S/P laparoscopic procedure Acute Adenocarcinoma of breast Acute 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
--- NOTE | 2017-12-31 10:05 | GDS ---
[f rep st] DISCHARGE SUMMARY Discharge from the Gynecology Service. DISCHARGE CONDITION: Improved. PROGNOSIS: Good. ADMISSION DIAGNOSIS: Postoperative 23-hour observation after laparoscopy, status post laparoscopic b ilateral oophorectomy. DISCHARGE DIAGNOSIS: Postoperative 23-hour observation after laparoscopy, status post laparoscopic b ilateral oophorectomy. SURGEON: Paula Montoya MD. ADMISSION SUMMARY: Patient is a 42-year-old, para 2 white female who has had diagnosis of metastatic breast cancer and was advised to remove ovaries to optimize treatment options. The patient was admi tted on 12/30 for laparoscopic removal of ovaries. This was performed without any complications. Po stoperatively, the patient was noticing muscle weakness after the anesthesia that she felt more comfo rtable having 23-hour observation to ensure no trouble through the night. The patient did notice yuliya t her strength improved as her anesthetic side effects wore off. The patient did not have any troubl e with nausea and began tolerating a regular diet. She was able to ambulate to the bathroom without problems. Pain management was good through the night with only ibuprofen. The patient did receive a Tylenol in the evening and had received fentanyl in the recovery room. The patient noticed night sw eats upon awakening in the middle of the night and a little emotional lability in the morning. The p atient has remained afebrile throughout the hospital stay. Patient's vital signs were all normal. A t the time of discharge, the patient is doing well. Her exam appears normal with a nontender abdomen with Band-Aids in place that show no signs of erythema or drainage. Patient is discharged home to return to clinic in 2 weeks. She is aware of the emotionally lability that might occur after drop of her estrogens, and the night sweats and hot flashes. She will call if she desires trying an antidepressant to see about improvement. /[id number]/MODL
[2017-12-31] MEDS ORDERED: HEPARIN 5,000 UNIT/0.5 ML SYR ONE (10:07)
--- NOTE | 2017-12-31 10:15 | GOP ---
[f rep st] OPERATIVE REPORT DATE OF OPERATION: 12/30/2017 SURGEON: Paula Montoya MD WIRE TECHNICIAN: MELIDA Lane. ANESTHESIA: General endotracheal. ANESTHESIOLOGIST: Jesu Rodriguez MD PREOPERATIVE DIAGNOSIS: Metastatic breast cancer. POSTOPERATIVE DIAGNOSIS: Metastatic breast cancer. PROCEDURE PERFORMED: Laparoscopic bilateral oophorectomy. FINDINGS: ESTIMATED BLOOD LOSS: Minimal. DESCRIPTION OF PROCEDURE: The patient was taken to the operating room where, following satisfactory general anesthesia, the patient was placed in dorsal lithotomy position. The perineum, vagina, and a bdomen were prepped and the patient draped in usual sterile manner for laparoscopy. The patient had her bladder emptied with a straight cath of approximately 30 mL prior to the surgery. The patient carmona d SCDs on her lower extremities for DVT prophylaxis and received antibiotics before the surgery. A s ponge stick was placed vaginally for manipulation during surgery. Marcaine 0.5% was used for topical anesthetic at the incision sites. A small infraumbilical incision was made sharply, and through thi s, the Veress needle was introduced into the abdomen while upward traction on the abdominal wall was performed. Through the Veress needle, CO2 was used to insufflate the abdomen without problem. After good insufflation, then the 5 mm trocar was introduced through this incision, again with upward trac tion on the abdominal wall. The laparoscopic camera was introduced through the port and confirmed in intra-abdominal position. With direct visualization then, the other 2 lower abdominal ports were pl aced. A 5 mm trocar was introduced in the left lower quadrant at the same incision site as her previ ous surgery, and a 10 mm trocar through the right lower quadrant site. These were introduced without problem. The patient was placed in Trendelenburg and the bowel was pushed up out of the operative area. There was essentially no scarring to the vaginal cuff. There were no abnormalities in the pelvis at all. The ovaries were actually positioned up at the pelvic brim bilaterally. The ureters could easily be visualized well out of the operative area and peristalsing normally. The ovaries were grasped and e levated, and the LigaSure was used to cauterize and then transect along the infundibulopelvic pedicle . There appeared to be a small tubal remnant on the left ovary, and this was resected. Both ovaries were placed into an Endopouch and removed through the 10 mm port without problems. The tip of the a ppendix, as well as the liver edge, were inspected, and they appeared normal. The fascial closure device was used to close the fascia with 0 Vicryl without any trouble at the 10 m m site. Following this, each incision was closed with a subcuticular stitch of 4-0 Monocryl. Monsel 's and Steri-Strips were applied at the incision sites, and then Band-Aids were placed. The patient was awakened and taken to the recovery room in stable condition. There were no complications. PREOPERATIVE NOTE: The patient is a 42-year-old, para 2, white female who is originally diagnosed wi th breast cancer in 2010, but was diagnosed with metastatic changes in May 2017. To optimize t reatment options, the patient was advised to have ovaries removed and wants to proceed at this time. Patient had a hysterectomy with removal of her tubes in October 2016 for prolapse. The patient was advised as to the risks and benefits of surgery and the consent form signed. TOTAL IV FLUIDS: 900 mL. /[id number]/MODL
[2017-12-31 11:59] VITALS: BP 102/66
== END 2017-12-31 12:00 | disposition home or self-care (01) ==
LOC: F3E 14:02 → FOB 19:33
PROVIDERS: ADMIT Obstetrics & Gynecology; ATTEND Obstetrics & Gynecology
PROC: 0UT20ZZ Resection of Bilateral Ovaries, Open Approach (ICD-10-PCS; principal; 2017-12-30 15:30)
DX: Z40.02 Encounter for prophylactic removal of ovary(s) (principal); C79.51 Secondary malignant neoplasm of bone; C78.7 Secondary malignant neoplasm of liver and intrahepatic bile duct; C78.00 Secondary malignant neoplasm of unspecified lung; Z90.710 Acquired absence of both cervix and uterus; Z85.3 Personal history of malignant neoplasm of breast; Z90.13 Acquired absence of bilateral breasts and nipples
CPT/HCPCS: 58940; G0378; J0690; J1100; J1642; J1644; J1885; J2250; J2370; J2405; J2704; J3010

== ENCOUNTER → 2018-01-24 | Outpatient (CLI) | payer OTHER | LOC: FIMAGING 09:19 | PROVIDERS: ATTEND Internal Medicine Hematology & Oncology | DX: R13.10 Dysphagia, unspecified (principal); C50.211 Malignant neoplasm of upper-inner quadrant of right female breast ==

== ENCOUNTER → 2018-02-09 | Outpatient (CLI) | payer OTHER ==
[~2018-02-09] MED LIST: GADOBUTROL 10 ML VIAL IVP ONE
== END ==
LOC: FIMAGING 07:42
PROVIDERS: ATTEND Internal Medicine Hematology & Oncology
DX: Z13.89 Encounter for screening for other disorder (principal); C50.211 Malignant neoplasm of upper-inner quadrant of right female breast
CPT/HCPCS: A9585; J1642

== ENCOUNTER → 2018-02-17 | Outpatient (CLI) | payer OTHER | PROVIDERS: ATTEND Internal Medicine Hematology & Oncology | DX: R13.13 Dysphagia, pharyngeal phase (principal); M33.90 Dermatopolymyositis, unspecified, organ involvement unspecified | CPT/HCPCS: 92611-GN ==

== ENCOUNTER → 2018-08-24 | Outpatient (CLI) | payer OTHER | LOC: FIMAGING 11:56 | PROVIDERS: ATTEND Internal Medicine Hematology & Oncology | DX: C50.211 Malignant neoplasm of upper-inner quadrant of right female breast (principal) | CPT/HCPCS: A9585; J1642 ==